=== PATIENT | female | born 1965 | race Caucasian/White ===

== ENCOUNTER 2017-08-15 15:54 | Emergency (ER) | payer MEDICAID ==
[2017-08-15 16:07] VITALS: BP 135/111
--- NOTE | 2017-08-15 16:15 | ED Physician Documentation ---
PD HPI LOWER EXT INJURY - Stated complaint Stated Complaint: RASH/LT FOOT INJ - Chief complaint Chief Complaint: Ext Problem - History obtained from History obtained from: Patient - History of Present Illness PD HPI LOW EXT INJURY LOCATION: Left, Ankle, Foot Type of injury: Twist Timing - onset: Today Worsened by: Moving, Palpating Associated symptoms: Swelling. 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 - Present Medications Home Medications: Ambulatory Orders Medication Instructions Recorded Confirmed Cephalexin [Keflex] 1 cap PO BID 08/15/17 08/15/17 Cetirizine [ZyrTEC] 10 mg PO DAILY #20 tablet 08/15/17 Dexamethasone [Decadron] 4 mg PO DAILY #5 tablet 08/15/17 Naproxen 375 mg PO BID #20 tablet 08/15/17 Sulfamethox/Trimeth 800/160 1 each PO BID #10 tablet 08/15/17 [Bactrim Ds 800/160] - Allergies Allergies/Adverse Reactions: Allergies Allergy/AdvReac Type Severity Reaction Status Date / Time No Known Drug Allergies Allergy Verified 08/15/17 16:03 - Social History Does the pt smoke?: Yes Smoking Status: Current every day smoker Does the pt drink ETOH?: Yes ETOH Use: Wine, Beer, Liquor Does the pt have substance abuse?: No - Immunizations Immunizations are current?: Yes - POLST Patient has POLST: No PD ED PE NORMAL - Vitals Vital signs reviewed: Yes - General General: Alert and oriented X 3, Well developed/nourished - HEENT HEENT: Pharynx benign - Neck Neck: Supple, no meningeal sign, No adenopathy - Cardiac Cardiac: RRR, No murmur - Respiratory Respiratory: Clear bilaterally - Derm Derm: Normal color, Warm and dry, Other (hives speckles on body c/w allergic reaction.) - Extremities Extremities: Other (left anterolateral foot/ankle with local tenderness and swelling. No gross laxity ons tress testing. Achilles is normal. ) Results - Vitals Vitals: Oxygen O2 Source Room air - Rads (name of study) ankle Radiology: Prelim report reviewed, EMP read contemporaneously (normal) PD MEDICAL DECISION MAKING - ED course Complexity details: considered differential (independent problems of foot sprain and hives rash c/w allergic reaction.), d/w patient Departure - Departure Disposition: 01 Home, Self Care Clinical Impression: Foot sprain Qualifiers: Encounter type: initial encounter Laterality: left Qualified Code(s): S93.602A - Unspecified sprain of left foot, initial encounter Allergic reaction caused by a drug Qualifiers: Encounter type: initial encounter Qualified Code(s): T78.40XA - Allergy, unspecified, initial encounter Condition: Stable Record reviewed to determine appropriate education?: Yes Instructions: ED Drug React Allergic, ED Boot Aircast Walker Follow-Up: Claritza Goss MD [Primary Care Provider] - Prescriptions: Cetirizine [ZyrTEC] 10 mg PO DAILY #20 tablet Dexamethasone [Decadron] 4 mg PO DAILY #5 tablet Naproxen 375 mg PO BID #20 tablet Sulfamethox/Trimeth 800/160 [Bactrim Ds 800/160] 1 each PO BID #10 tablet Comments: Your foot and ankle x-ray does not show any fractures. It presumably is some sprain of the ligaments. Use the walking cast boot which will provide multidimensional support for the ankle. Use it when up and around for the next 2-3 weeks until fully healed. Use some naproxen or ibuprofen twice daily for the next 7-10 days. Activity as able based on comfort. For your allergic reaction, stop the cephalexin and changed to Bactrim instead for the bladder infection. Use dexamethasone steroid for the allergic reaction daily for the next 5 days. Add cetirizine daily for the next week. This is an antihistamine. In the short-term you can use Benadryl every 6 hours if needed for itching and hives in the short-term. Recheck if the hives are not better over the next day or 2. Recheck if your ankle is not better over the next week or so. Discharge Date/Time: 08/15/17 17:19
--- NOTE | 2017-08-15 16:43 | XRAY Report ---
EXAM: LEFT ANKLE RADIOGRAPHY EXAM DATE: 08/15/2017 04:32 PM. CLINICAL HISTORY: ANKLE PAIN. COMPARISON: None. TECHNIQUE: 3 views. FINDINGS: Bones: No fracture or focal bony lesion. Joints: No evidence of dislocation. Soft Tissues: No unexpected soft tissue findings. IMPRESSION: No evidence of fracture or dislocation. [facility] Referring Provider Line: [phone] SITE ID: [id number]
[2017-08-15] MEDS ORDERED: diphenhydrAMINE 25 MG CAPSULE PO STA (16:46)
[2017-08-15] MEDS ORDERED: DEXAMETHASONE 10 MG/ML VIAL PO STA (16:46)
[2017-08-15] MEDS ORDERED: CETIRIZINE 10 MG TABLET PO STA (16:46)
[2017-08-15] MEDS ORDERED: ACETAMINOPHEN 325 MG TABLET PO STA (16:47)
== END 2017-08-15 17:19 | disposition home or self-care (01) ==
LOC: ED 15:54
DX: S93.602A Unspecified sprain of left foot, initial encounter (principal); T78.40XA Allergy, unspecified, initial encounter; X58.XXXA Exposure to other specified factors, initial encounter; F17.200 Nicotine dependence, unspecified, uncomplicated
CPT/HCPCS: 73610; 99283; A9270

== ENCOUNTER 2017-08-27 10:56 | Emergency (ER) | payer MEDICAID ==
[2017-08-27] MEDS ORDERED: SODIUM CHLORIDE 0.9% 2,000 ML IV ONE (11:31)
[2017-08-27 11:59] LABS: BILIRUBIN,URINE NEGATIVE (NEGATIVE); GLUCOSE, URINE (UA) NEGATIVE (NEGATIVE); KETONES,URINE (UA) NEGATIVE (NEGATIVE); LEUKOCYTE ESTERASE, URINE NEGATIVE (NEGATIVE); NITRITE,URINE POSITIVE (NEGATIVE); OCCULT BLOOD,URINE TRACE-INTA (NEGATIVE); PH,URINE 6.5 PH (5.0-7.5); PROTEIN,URINE NEGATIVE (NEGATIVE); UROBILINOGEN,URINE 0.2 (NORMAL) E.U./dL (NORMAL)
[2017-08-27 12:00] LABS: CLARITY,URINE HAZY (CLEAR)
[2017-08-27 12:14] LABS: BACTERIA,URINE Many /HPF (None Seen); RBC,URINE 0-5 /HPF (0-5); SQUAMOUS EPITHELIAL CELL,UR RARE Squamous (<= Few)
[2017-08-27 12:21] LABS: BASOPHILS # (AUTO) 0.2 10^3/uL (0.0-0.1); EOSINOPHILS # (AUTO) 0.2 10^3/uL (0.0-0.7); EOSINOPHILS % (AUTO) 1.4 %; HGB - HEMOGLOBIN 14.4 g/dL (12.0-16.0); LYMPHOCYTES # (AUTO) 3.5 10^3/uL (1.5-3.5); LYMPHOCYTES % (AUTO) 22.2 %; MEAN CORPUSCULAR HEMOGLOBIN 33.4 pg (27.0-31.0); MEAN CORPUSCULAR HGB CONC 34.4 g/dL (32.0-36.0); MEAN CORPUSCULAR VOLUME 97.1 fL (81.0-99.0); MEAN PLATELET VOLUME 8.2 fL (7.9-10.8); MONOCYTES # (AUTO) 0.7 10^3/uL (0.0-1.0); MONOCYTES % (AUTO) 4.6 %; NEUTROPHILS # (AUTO) 11.2 10^3/uL (1.5-6.6); NEUTROPHILS % (AUTO) 70.8 %; PLT - PLATELET COUNT 270 10^3/uL (130-450); RED BLOOD COUNT 4.32 10^6/uL (4.20-5.40); RED CELL DISTRIBUTION WIDTH 13.7 % (12.0-15.0); WHITE BLOOD COUNT 15.8 x10^3/uL (4.8-10.8)
[2017-08-27 12:35] LABS: ALBUMIN 3.6 g/dL (3.2-5.5); ALBUMIN/GLOBULIN RATIO 1.2 (1.0-2.2); BILIRUBIN,TOTAL 0.5 mg/dL (0.2-1.0); CREATININE 0.8 mg/dL (0.4-1.0); TOTAL PROTEIN 6.7 g/dL (6.7-8.2)
[2017-08-27] MEDS ORDERED: KETOROLAC 60 MG/2 ML VIAL IVP STA (13:03)
[2017-08-27] MEDS ORDERED: ONDANSETRON 4 MG/2 ML VIAL IVP STA (13:03)
--- NOTE | 2017-08-27 14:53 | ED Physician Documentation ---
History of Present Illness - Stated complaint Stated Complaint: ABD/SIDE PX - Chief complaint Chief Complaint: Abd Pain - Additonal information Additional information: hx from pt s/p appy raymundo hyst hx pancreatitis cause unknown - occurred s/p raymundo, pt states not related to EtOH states she has been ill with NVD since mid to late July saw her PMD at [facility] and was dx with UTI and txed with antibiotics - pt states they trief keflex then cipro then septra but she had to dc all of them 2/2 side effect of NVD she had NVD before the antibiotics as weel but states this was worse rash with septra as well then today developed severe periumbilical pain 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 no 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 cough Review of Systems Constitutional: denies: Fever, Chills Cardiac: denies: Chest pain / pressure Respiratory: denies: Dyspnea, Cough GI: reports: Abdominal Pain, Nausea, Vomiting, Diarrhea : reports: Dysuria, Hysterectomy Endocrine: denies: Easy bruising / bleeding Immunocompromised: denies: Immunocompromised PD PAST MEDICAL HISTORY - Past Surgical History Past Surgical History: Yes General: Cholecystectomy, Appendectomy 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 - Present Medications Home Medications: Ambulatory Orders Medication Instructions Recorded Confirmed Nitrofurantoin [Macrobid] 100 mg PO BID #14 capsule 08/27/17 Ondansetron Odt [Zofran] 4 mg TL Q6H PRN #10 tablet 08/27/17 - Allergies Allergies/Adverse Reactions: Allergies Allergy/AdvReac Type Severity Reaction Status Date / Time No Known Drug Allergies Allergy Verified 08/27/17 11:05 - Social History Does the pt smoke?: Yes Smoking Status: Current every day smoker Does the pt drink ETOH?: Yes Does the pt have substance abuse?: No - Immunizations Immunizations are current?: Yes - POLST Patient has POLST: No PD ED PE NORMAL - Vitals Vital signs reviewed: Yes - Cardiac Cardiac: RRR - Respiratory Respiratory: No respiratory distress, Clear bilaterally - Abdomen Abdomen: Soft, Other (mid TTP mid upper abd s rebound or guarding, no pulsatile mass) - Back Back: No CVA TTP - Derm Derm: Normal color - Extremities Extremities: No deformity - Neuro Neuro: Alert and oriented X 3 Results - Vitals Vitals: Vital Signs - 24 hr 08/27/17 08/27/17 11:00 13:55 Temperature 36.3 C L Heart Rate 119 H 93 Respiratory 20 18 Rate Blood Pressure 125/86 H 106/68 O2 Saturation 97 97 Oxygen O2 Source Room air - Labs Labs: Laboratory Tests 08/27/17 08/27/17 08/27/17 11:10 12:15 12:15 WBC 15.8 H RBC 4.32 Hgb 14.4 Hct 42.0 MCV 97.1 MCH 33.4 H MCHC 34.4 RDW 13.7 Plt Count 270 MPV 8.2 Neut # 11.2 H Lymph # 3.5 [place] # 0.7 Eos # 0.2 Baso # 0.2 H Absolute Nucleated RBC 0.00 Nucleated RBC % 0.0 Sodium 138 Potassium 3.7 Chloride 103 Carbon Dioxide 24 Anion Gap 11.0 BUN 14 Creatinine 0.8 Estimated GFR (MDRD) 76 L Glucose 103 H Lactic Acid Calcium 9.0 Total Bilirubin 0.5 AST 25 ALT 46 Alkaline Phosphatase 152 H Total Protein 6.7 Albumin 3.6 Globulin 3.1 Albumin/Globulin Ratio 1.2 Lipase 20 L Urine Color YELLOW Urine Clarity HAZY Urine pH 6.5 Ur Specific [place] 1.025 Urine Protein NEGATIVE Urine Glucose (UA) NEGATIVE Urine Ketones NEGATIVE Urine Occult Blood TRACE-INTA Urine Nitrite POSITIVE H Urine Bilirubin NEGATIVE Urine Urobilinogen 0.2 (NORMAL) Ur Leukocyte Esterase NEGATIVE Urine RBC 0-5 Urine WBC >25 H Ur Squamous Epith Cells RARE Squamous Urine Bacteria Many H Ur Microscopic Review INDICATED Urine Culture Comments INDICATED 08/27/17 12:15 WBC RBC Hgb Hct MCV MCH MCHC RDW Plt Count MPV Neut # Lymph # [place] # Eos # Baso # Absolute Nucleated RBC Nucleated RBC % Sodium Potassium Chloride Carbon Dioxide Anion Gap BUN Creatinine Estimated GFR (MDRD) Glucose Lactic Acid 1.2 Calcium Total Bilirubin AST ALT Alkaline Phosphatase Total Protein Albumin Globulin Albumin/Globulin Ratio Lipase Urine Color Urine Clarity Urine pH Ur Specific [place] Urine Protein Urine Glucose (UA) Urine Ketones Urine Occult Blood Urine Nitrite Urine Bilirubin Urine Urobilinogen Ur Leukocyte Esterase Urine RBC Urine WBC Ur Squamous Epith Cells Urine Bacteria Ur Microscopic Review Urine Culture Comments PD MEDICAL DECISION MAKING - ED course ED course: obtained records from [facility] elev LFTs hepatits panel pending, meth abuse last use Jul 2017, mental health, asthma, arthritis it seems her visit on 08/13 was for insomnia related to meth withdrawal alk phos AST ALT all mod elevated, + UTI urine culture grew E Coli sens augmentin ceftriazone cefepine, cipro, ertapenem , imipenem, levaquin, macrobd, zosyn and resisatnt to bactrim today she has continued NVD and UTI sx and is tachy with elev WBC but neg lactate LFTs improved from last visit (she denies any tylenol EtOH) has upper abd TTP but not peritoneal, already s/p raymundo, no pulsatile mass, neg lipase makes pancreatitis unlikely - could be from a month of NV and be muscular - in any case she feels much much better after IVF and toradol and zofran - rpt ab exam no TTP at all - she is eating crackers do not feel emergent imaging needed at this time - will tx with UTI and NVD - given systemic sx will rx X 7 days she adds she is one month sober from meth so that may explain some of her GI issues pt requested I call her PMD at to expeditie her admit to [facility] Departure - Departure Clinical Impression: UTI (urinary tract infection) Qualifiers: Urinary tract infection type: acute cystitis Hematuria presence: without hematuria Qualified Code(s): N30.00 - Acute cystitis without hematuria Condition: Good Instructions: ED UTI Cystitis Female Follow-Up: Claritza Goss MD [Primary Care Provider] - Prescriptions: Nitrofurantoin [Macrobid] 100 mg PO BID #14 capsule Ondansetron Odt [Zofran] 4 mg TL Q6H PRN #10 tablet PRN Reason: Nausea / Vomiting Comments: Rest and drink plenty of fluids You need to take the antibiotics - take the zofran if you need to keep the vomiting under control so you can take the antibiotic Follow up with your PMD for a recheck urine after finishing the antibiotics
[2017-08-27] MEDS ORDERED: NITROFURANTOIN MACRO 100 MG CAPSULE PO STA (15:02)
[2017-08-27 15:22] VITALS: BP 107/70
== END 2017-08-27 15:28 | disposition home or self-care (01) ==
LOC: ED 10:56
DX: N30.00 Acute cystitis without hematuria (principal); F17.200 Nicotine dependence, unspecified, uncomplicated
CPT/HCPCS: 36415; 80053; 81001; 83605; 83690; 85025; 87040; 87086; 96361; 96374; 99283; A9270; 80306; 81003

== ENCOUNTER 2017-09-05 12:52 | Emergency (ER) | payer MEDICAID ==
[2017-09-05 13:06] VITALS: BP 115/85
[2017-09-05 13:16] LABS: BILIRUBIN,URINE NEGATIVE (NEGATIVE); GLUCOSE, URINE (UA) NEGATIVE (NEGATIVE); KETONES,URINE (UA) NEGATIVE (NEGATIVE); LEUKOCYTE ESTERASE, URINE NEGATIVE (NEGATIVE); NITRITE,URINE NEGATIVE (NEGATIVE); OCCULT BLOOD,URINE TRACE-LYSE (NEGATIVE); PH,URINE 7.5 PH (5.0-7.5); PROTEIN,URINE NEGATIVE (NEGATIVE); UROBILINOGEN,URINE 0.2 (NORMAL) E.U./dL (NORMAL)
[2017-09-05 13:20] LABS: CLARITY,URINE CLEAR (CLEAR)
--- NOTE | 2017-09-05 13:25 | ED Physician Documentation ---
PD HPI FEMALE - Stated complaint Stated Complaint: FEMALE - Chief complaint Chief Complaint: General - History obtained from History obtained from: Patient - History of Present Illness Timing - onset: Other (she had a UTI and was on abx. She is going into an alcohol treatment program and needed to have it checked that the infection is cleared. She says she does not need any other tests. 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 - Present Medications Home Medications: Ambulatory Orders Medication Instructions Recorded Confirmed Nitrofurantoin [Macrobid] 100 mg PO BID #14 capsule 08/27/17 Ondansetron Odt [Zofran] 4 mg TL Q6H PRN #10 tablet 08/27/17 - Allergies Allergies/Adverse Reactions: Allergies Allergy/AdvReac Type Severity Reaction Status Date / Time No Known Drug Allergies Allergy Verified 08/27/17 11:05 - Social History Does the pt smoke?: Yes Smoking Status: Current every day smoker Does the pt drink ETOH?: No Does the pt have substance abuse?: No - Immunizations Immunizations are current?: Yes - POLST Patient has POLST: No PD ED PE NORMAL - Vitals Vital signs reviewed: Yes - General General: Alert and oriented X 3, No acute distress, Well developed/nourished - Neck Neck: Supple, no meningeal sign, No adenopathy - Female Female : Deferred - Back Back: No CVA TTP - Derm Derm: Normal color, Warm and dry Results - Vitals Vitals: Oxygen O2 Source Room air - Labs Labs: Laboratory Tests 09/05/17 13:11 Urine Color YELLOW Urine Clarity CLEAR Urine pH 7.5 Ur Specific [place] 1.015 Urine Protein NEGATIVE Urine Glucose (UA) NEGATIVE Urine Ketones NEGATIVE Urine Occult Blood TRACE-LYSE Urine Nitrite NEGATIVE Urine Bilirubin NEGATIVE Urine Urobilinogen 0.2 (NORMAL) Ur Leukocyte Esterase NEGATIVE Ur Microscopic Review NOT INDICATED Urine Culture Comments NOT INDICATED PD MEDICAL DECISION MAKING - ED course Complexity details: reviewed results, d/w patient Departure - Departure Disposition: 01 Home, Self Care Clinical Impression: Encounter for urine test Clinical Impression: (Ruled Out): UTI (urinary tract infection) Condition: Stable Record reviewed to determine appropriate education?: Yes Comments: Your urine looks clear without any signs of infection. Forms: Activity restrictions Discharge Date/Time: 09/05/17 13:57
== END 2017-09-05 13:57 | disposition home or self-care (01) ==
LOC: ED 12:52
DX: Z00.00 Encounter for general adult medical examination without abnormal findings (principal); F17.200 Nicotine dependence, unspecified, uncomplicated
CPT/HCPCS: 81001; 81003; 87086; 99282

== ENCOUNTER 2017-10-17 11:37 | Emergency (ER) | payer MEDICAID ==
[2017-10-17 13:10] LABS: BILIRUBIN,URINE NEGATIVE (NEGATIVE); GLUCOSE, URINE (UA) NEGATIVE (NEGATIVE); KETONES,URINE (UA) NEGATIVE (NEGATIVE); LEUKOCYTE ESTERASE, URINE NEGATIVE (NEGATIVE); NITRITE,URINE NEGATIVE (NEGATIVE); OCCULT BLOOD,URINE TRACE-LYSE (NEGATIVE); PH,URINE 6.5 PH (5.0-7.5); PROTEIN,URINE NEGATIVE (NEGATIVE); UROBILINOGEN,URINE 0.2 (NORMAL) E.U./dL (NORMAL)
[2017-10-17 13:11] LABS: CLARITY,URINE CLEAR (CLEAR)
[2017-10-17 13:20] LABS: BASOPHILS # (AUTO) 0.1 10^3/uL (0.0-0.1); BASOPHILS % (AUTO) 1.3 %; EOSINOPHILS # (AUTO) 0.2 10^3/uL (0.0-0.7); EOSINOPHILS % (AUTO) 2.6 %; HGB - HEMOGLOBIN 14.7 g/dL (12.0-16.0); LYMPHOCYTES # (AUTO) 2.7 10^3/uL (1.5-3.5); LYMPHOCYTES % (AUTO) 30.5 %; MEAN CORPUSCULAR HEMOGLOBIN 33.4 pg (27.0-31.0); MEAN CORPUSCULAR HGB CONC 35.2 g/dL (32.0-36.0); MEAN CORPUSCULAR VOLUME 94.9 fL (81.0-99.0); MEAN PLATELET VOLUME 7.7 fL (7.9-10.8); MONOCYTES # (AUTO) 0.5 10^3/uL (0.0-1.0); MONOCYTES % (AUTO) 5.9 %; NEUTROPHILS # (AUTO) 5.3 10^3/uL (1.5-6.6); NEUTROPHILS % (AUTO) 59.7 %; PLT - PLATELET COUNT 294 10^3/uL (130-450); RED CELL DISTRIBUTION WIDTH 12.7 % (12.0-15.0); WHITE BLOOD COUNT 8.9 x10^3/uL (4.8-10.8)
--- NOTE | 2017-10-17 13:24 | ED Physician Documentation ---
PD HPI ABD PAIN - Stated complaint Stated Complaint: abd/back pain - Chief complaint Chief Complaint: Abd Pain - History obtained from History obtained from: Patient - History of Present Illness Timing - onset: How many days ago (few) Timing - duration: Days (few) Timing - details: Gradual onset, Still present Quality: Cramping, Aching, Pain Location: Periumbilical, Suprapubic Associated symptoms: Nausea, Constipation. No: Fever Similar symptoms before: Has not had sx before Recently seen: Not recently seen Review of Systems Constitutional: reports: Fever, Chills, Myalgias Nose: denies: Rhinorrhea / runny nose, Congestion Throat: denies: Sore throat Cardiac: denies: Chest pain / pressure Respiratory: denies: Dyspnea, Cough GI: reports: Abdominal Pain, Nausea. 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 - Present Medications Home Medications: Ambulatory Orders Medication Instructions Recorded Confirmed Ondansetron Odt [Zofran] 4 mg TL Q6H PRN #10 tablet 08/27/17 Dexamethasone [Decadron] 4 mg PO DAILY #5 tablet 10/17/17 Dicyclomine HCl 10/17/17 HYDROcod/ACETAM 5/325 [[place] 5/325] 1 tab PO Q6H PRN #15 tablet 10/17/17 Hydrocodone/Acetaminophen [Vicodin 10/17/17 5-300 mg Tablet] Mesalamine [Apriso] 10/17/17 Metronidazole [Flagyl] 500 mg PO BID #14 tablet 10/17/17 Ondansetron HCl [Zofran] 4 mg PO Q6H PRN #20 tablet 10/17/17 Ranitidine HCl [Acid Control] 10/17/17 Trazodone HCl 10/17/17 cloNIDine 0.1 MG PATCH 10/17/17 [Qgipwkry-Apg-4] hydrOXYzine HCl [Hydroxyzine HCl] 25 mg PO 10/17/17 - Allergies Allergies/Adverse Reactions: Allergies Allergy/AdvReac Type Severity Reaction Status Date / Time No Known Drug Allergies Allergy Verified 08/27/17 11:05 - Social History Does the pt smoke?: Yes Smoking Status: Current every day smoker Does the pt drink ETOH?: No Does the pt have substance abuse?: No - Immunizations Immunizations are current?: Yes - POLST Patient has POLST: No PD ED PE NORMAL - Vitals Vital signs reviewed: Yes - General General: Alert and oriented X 3, No acute distress, Well developed/nourished - HEENT HEENT: PERRL (nonicteric), Pharynx benign - Neck Neck: Supple, no meningeal sign, No adenopathy - Cardiac Cardiac: RRR, No murmur - Respiratory Respiratory: Clear bilaterally - Abdomen Abdomen: Normal bowel sounds, Soft, Non distended, No organomegaly, Other ( tender suprapubic area and then also LLQ area without guarding nor percussion tenderness. ) - Back Back: No CVA TTP - Derm Derm: Warm and dry - Extremities Extremities: No deformity, No tenderness to palpate, Normal ROM s pain - Neuro Neuro: Alert and oriented X 3, No motor deficit, Normal speech - Psych Psych: Normal mood, Normal affect Results - Vitals Vitals: Oxygen O2 Source Room air - Labs Labs: Laboratory Tests 10/17/17 10/17/17 10/17/17 12:55 13:16 13:16 WBC 8.9 RBC 4.40 Hgb 14.7 Hct 41.7 MCV 94.9 MCH 33.4 H MCHC 35.2 RDW 12.7 Plt Count 294 MPV 7.7 L Neut # 5.3 Lymph # 2.7 [place] # 0.5 Eos # 0.2 Baso # 0.1 Absolute Nucleated RBC 0.01 Nucleated RBC % 0.1 ESR Sodium 136 Potassium 3.8 Chloride 104 Carbon Dioxide 23 Anion Gap 9.0 BUN 15 Creatinine 0.7 Estimated GFR (MDRD) 88 L Glucose 109 H Calcium 9.4 Magnesium Total Bilirubin 0.6 AST 34 ALT 34 Alkaline Phosphatase 147 H Total Protein 7.9 Albumin 4.6 Globulin 3.3 Albumin/Globulin Ratio 1.4 Lipase 18 L Urine Color YELLOW Urine Clarity CLEAR Urine pH 6.5 Ur Specific [place] 1.015 Urine Protein NEGATIVE Urine Glucose (UA) NEGATIVE Urine Ketones NEGATIVE Urine Occult Blood TRACE-LYSE Urine Nitrite NEGATIVE Urine Bilirubin NEGATIVE Urine Urobilinogen 0.2 (NORMAL) Ur Leukocyte Esterase NEGATIVE Ur Microscopic Review NOT INDICATED Urine Culture Comments NOT INDICATED 10/17/17 10/17/17 13:16 13:16 WBC RBC Hgb Hct MCV MCH MCHC RDW Plt Count MPV Neut # Lymph # [place] # Eos # Baso # Absolute Nucleated RBC Nucleated RBC % ESR 28 Sodium Potassium Chloride Carbon Dioxide Anion Gap BUN Creatinine Estimated GFR (MDRD) Glucose Calcium Magnesium 2.1 Total Bilirubin AST ALT Alkaline Phosphatase Total Protein Albumin Globulin Albumin/Globulin Ratio Lipase Urine Color Urine Clarity Urine pH Ur Specific [place] Urine Protein Urine Glucose (UA) Urine Ketones Urine Occult Blood Urine Nitrite Urine Bilirubin Urine Urobilinogen Ur Leukocyte Esterase Ur Microscopic Review Urine Culture Comments PD MEDICAL DECISION MAKING - ED course Complexity details: re-evaluated patient, considered differential, d/w patient Departure - Departure Disposition: Home, Self Care Clinical Impression: Abdominal pain Qualifiers: Abdominal location: left lower quadrant Qualified Code(s): R10.32 - Left lower quadrant pain Ulcerative colitis Qualifiers: Ulcerative colitis location: unspecified ulcerative colitis location Digestive disease complication type: without complication Qualified Code(s): K51.90 - Ulcerative colitis, unspecified, without complications Condition: Stable Record reviewed to determine appropriate education?: Yes Instructions: ED Abdominal Pain Unkn Cause, ED Colitis Ulcerative Follow-Up: Claritza Goss MD [Primary Care Provider] - Prescriptions: Dexamethasone [Decadron] 4 mg PO DAILY #5 tablet HYDROcod/ACETAM 5/325 [[place] 5/325] 1 tab PO Q6H PRN #15 tablet PRN Reason: Pain Metronidazole [Flagyl] 500 mg PO BID #14 tablet Ondansetron HCl [Zofran] 4 mg PO Q6H PRN #20 tablet PRN Reason: Nausea / Vomiting Comments: Drink lots of fluids. Continue usual medications. Add Decadron steroid daily for 5 more days. Flagyl twice daily for a week in case of infection developing. Add hydrocodone if needed for pain. Drink lots of fluids sorry I said that already. Follow-up with your primary care if not improving over the next few days. Follow-up with GI in [place] as planned. Discharge Date/Time: 10/17/17 15:25
[2017-10-17 13:32] LABS: ALBUMIN 4.6 g/dL (3.2-5.5); ALBUMIN/GLOBULIN RATIO 1.4 (1.0-2.2); BILIRUBIN,TOTAL 0.6 mg/dL (0.2-1.0); CALCIUM 9.4 mg/dL (8.5-10.3); CREATININE 0.7 mg/dL (0.4-1.0); TOTAL PROTEIN 7.9 g/dL (6.7-8.2)
[2017-10-17] MEDS ORDERED: HYDROmorphone 1 MG/ML CARPUJECT IVP STA (13:38)
[2017-10-17] MEDS ORDERED: SODIUM CHLORIDE 0.9% 1,000 ML IV ONE (13:38)
[2017-10-17] MEDS ORDERED: ONDANSETRON 4 MG/2 ML VIAL IVP STA (13:38)
[2017-10-17] MEDS ORDERED: DEXAMETHASONE 10 MG/ML VIAL IVP STA (13:38)
[2017-10-17] MEDS ORDERED: metroNIDAZOLE 250 MG TABLET PO STA (15:06)
[2017-10-17 15:17] VITALS: BP 127/84
== END 2017-10-17 15:25 | disposition home or self-care (01) ==
LOC: ED 11:37
DX: K51.90 Ulcerative colitis, unspecified, without complications (principal); F17.200 Nicotine dependence, unspecified, uncomplicated
CPT/HCPCS: 36415; 80053; 81003; 83690; 83735; 85025; 85651; 96361; 96374; 99283; 99284; A9270; J1170; 81001; 87086

== ENCOUNTER 2018-02-16 20:19 | Emergency (ER) | payer MEDICAID ==
[2018-02-16] MEDS ORDERED: IBUPROFEN 600 MG TABLET PO STA (20:30)
--- NOTE | 2018-02-16 20:37 | ED Physician Documentation ---
PD HPI LOWER EXT INJURY - Stated complaint Stated Complaint: LT KNEE INJ - Chief complaint Chief Complaint: Trauma Ext - History obtained from History obtained from: Patient - History of Present Illness PD HPI LOW EXT INJURY LOCATION: Left (She had her left knee planted and was twisting the right and she felt a pull behind the left knee with moderate pain there no fall.) Review of Systems Constitutional: reports: Reviewed and negative Cardiac: reports: Reviewed and negative Respiratory: reports: Reviewed and negative PD PAST MEDICAL HISTORY - Past Medical History Past Medical History: Yes Cardiovascular: None Respiratory: None GI: Ulcerative colitis - Past Surgical History Past Surgical History: Yes General: Cholecystectomy, Appendectomy 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 - Present Medications Home Medications: Ambulatory Orders Medication Instructions Recorded Confirmed Ondansetron Odt [Zofran] 4 mg TL Q6H PRN #10 tablet 08/27/17 Dexamethasone [Decadron] 4 mg PO DAILY #5 tablet 10/17/17 Dicyclomine HCl 10/17/17 HYDROcod/ACETAM 5/325 [[place] 5/325] 1 tab PO Q6H PRN #15 tablet 10/17/17 Hydrocodone/Acetaminophen [Vicodin 10/17/17 5-300 mg Tablet] Mesalamine [Apriso] 10/17/17 Metronidazole [Flagyl] 500 mg PO BID #14 tablet 10/17/17 Ondansetron HCl [Zofran] 4 mg PO Q6H PRN #20 tablet 10/17/17 Ranitidine HCl [Acid Control] 10/17/17 Trazodone HCl 10/17/17 cloNIDine 0.1 MG PATCH 10/17/17 [Pngmybet-Nwp-1] hydrOXYzine HCl [Hydroxyzine HCl] 25 mg PO 10/17/17 - Allergies Allergies/Adverse Reactions: Allergies Allergy/AdvReac Type Severity Reaction Status Date / Time No Known Drug Allergies Allergy Verified 02/16/18 20:26 - Social History Does the pt smoke?: Yes Smoking Status: Current every day smoker Does the pt drink ETOH?: No Does the pt have substance abuse?: No - Immunizations Immunizations are current?: Yes - POLST Patient has POLST: No PD ED PE NORMAL - Vitals Vital signs reviewed: Yes - General General: Alert and oriented X 3, No acute distress - Extremities Extremities: Other (The knee is not tender and there is no effusion. She does have some pain with grind testing and testing of the lateral collateral ligament , but all the ligaments are tight.) - Neuro Neuro: Alert and oriented X 3, Normal speech Results - Vitals Vitals: Vital Signs - 24 hr 02/16/18 02/16/18 20:24 21:28 Temperature 36.7 C 36.5 C Heart Rate 107 H 97 Respiratory 20 18 Rate Blood Pressure 155/103 H 123/83 H O2 Saturation 99 97 Oxygen O2 Source Room air - Rads (name of study) L knee 4v Radiology: EMP read contemporaneously (NAD) PD MEDICAL DECISION MAKING - Sepsis Event Vital Signs: Vital Signs - 24 hr 02/16/18 02/16/18 20:24 21:28 Temperature 36.7 C 36.5 C Heart Rate 107 H 97 Respiratory 20 18 Rate Blood Pressure 155/103 H 123/83 H O2 Saturation 99 97 Oxygen O2 Source Room air Departure - Departure Disposition: 01 Home, Self Care Clinical Impression: Strain of left knee Qualifiers: Encounter type: initial encounter Qualified Code(s): S86.912A - Strain of unspecified muscle(s) and tendon(s) at lower leg level, left leg, initial encounter Condition: Good Record reviewed to determine appropriate education?: Yes Instructions: ED Sprain Ankle W X Ray Comments: Follow-up with your physician in a week or 2 if not better, return for new or worsening symptoms. Discharge Date/Time: 02/16/18 21:59
[2018-02-16 21:31] VITALS: BP 123/83
[2018-02-16] MEDS ORDERED: HYDROcod/ACET 5/325 Prepack 4 PO STA (21:50)
[2018-02-16] MEDS ORDERED: LIDOCAINE PATCH 5% TOP SCH (22:00)
--- NOTE | 2018-02-17 08:55 | XRAY Report ---
Procedure Date: 02/16/2018 Accession Number: [id number] / [id number] Procedure: XR - Knee 4 View LT CPT Code: FULL RESULT: EXAM: LEFT KNEE RADIOGRAPHY EXAM DATE: 02/16/2018 08:49 PM. CLINICAL HISTORY: Knee pain COMPARISON: None. TECHNIQUE: 4 views. FINDINGS: Bones: No fracture or focal bony lesion. Joints: No evidence of dislocation. Soft Tissues: No unexpected soft tissue findings. IMPRESSION: No evidence of fracture or dislocation. [facility]
== END 2018-02-16 21:59 | disposition home or self-care (01) ==
LOC: ED 20:19
DX: S86.912A Strain of unspecified muscle(s) and tendon(s) at lower leg level, left leg, initial encounter (principal); X50.1XXA Overexertion from prolonged static or awkward postures, initial encounter; Y93.01 Activity, walking, marching and hiking; Y92.480 Sidewalk as the place of occurrence of the external cause; F17.200 Nicotine dependence, unspecified, uncomplicated
CPT/HCPCS: 73564; 99283; A9270

== ENCOUNTER 2018-02-20 04:39 | Emergency (ER) | payer MEDICAID ==
--- NOTE | 2018-02-20 05:27 | ED Physician Documentation ---
PD HPI ABD PAIN - Stated complaint Stated Complaint: ABD PAIN - Chief complaint Chief Complaint: Abd Pain - History obtained from History obtained from: Patient - History of Present Illness Timing - onset: How many hours ago (a few hours) Timing - duration: Hours Timing - details: Abrupt onset Pain level now: 8 Quality: Pain Location: All over / everywhere (predominantly across lower abdomen, greatest in LLQ and periumbilicus) Radiation: Other (no radiation) Improved by: Laying still Worsened by: Moving, Palpation Associated symptoms: Nausea, Vomiting, Diarrhea. No: Fever, Constipation, Dysuria Similar symptoms before: Diagnosis (feels similar to previous UC flares) Recently seen: Emergency Dept (6th [facility] ED visit this year) Review of Systems Constitutional: reports: Reviewed and negative Cardiac: reports: Reviewed and negative Respiratory: reports: Reviewed and negative GI: reports: Abdominal Pain, Nausea, Vomiting, Diarrhea : denies: Dysuria, Frequency PD PAST MEDICAL HISTORY - Past Medical History Past Medical History: Yes Cardiovascular: None Respiratory: None GI: Ulcerative colitis - Past Surgical History Past Surgical History: Yes General: Cholecystectomy, Appendectomy 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 - Present Medications Home Medications: Ambulatory Orders Medication Instructions Recorded Confirmed Ondansetron Odt [Zofran] 4 mg TL Q6H PRN #10 tablet 08/27/17 Dexamethasone [Decadron] 4 mg PO DAILY #5 tablet 10/17/17 Dicyclomine HCl 10/17/17 HYDROcod/ACETAM 5/325 [[place] 5/325] 1 tab PO Q6H PRN #15 tablet 10/17/17 Hydrocodone/Acetaminophen [Vicodin 10/17/17 5-300 mg Tablet] Mesalamine [Apriso] 10/17/17 Metronidazole [Flagyl] 500 mg PO BID #14 tablet 10/17/17 Ondansetron HCl [Zofran] 4 mg PO Q6H PRN #20 tablet 10/17/17 Ranitidine HCl [Acid Control] 10/17/17 Trazodone HCl 10/17/17 cloNIDine 0.1 MG PATCH 10/17/17 [Qohqtilk-Aor-6] hydrOXYzine HCl [Hydroxyzine HCl] 25 mg PO 10/17/17 Dexamethasone [Decadron] 4 mg PO DAILY #4 tablet 02/20/18 Hydrocodone/Acetaminophen 1 - 2 each PO Q6HR PRN #14 tablet 02/20/18 [Hydrocodon-Acetaminophen 5-325] Mesalamine [Apriso] 1.5 gm PO DAILY 30 Days #120 02/20/18 cap.er.24h Metronidazole [Flagyl] 500 mg PO BID #14 tablet 02/20/18 Ondansetron Odt [Zofran] 4 mg TL Q6H PRN #14 tablet 02/20/18 - Allergies Allergies/Adverse Reactions: Allergies Allergy/AdvReac Type Severity Reaction Status Date / Time No Known Drug Allergies Allergy Verified 02/20/18 04:44 - Social History Does the pt smoke?: Yes Smoking Status: Current every day smoker Does the pt drink ETOH?: No Does the pt have substance abuse?: No - Immunizations Immunizations are current?: Yes - POLST Patient has POLST: No PD ED PE NORMAL - Vitals Vital signs reviewed: Yes - General General: Alert and oriented X 3, No acute distress, Well developed/nourished - Abdomen Abdomen: Soft, Non distended, Other (TTP across lower abdomen and periumbilicus without rebound or guarding. tenderness is mild) - Back Back: No CVA TTP - Derm Derm: Normal color, Warm and dry, No rash - Extremities Extremities: No edema Results - Vitals Vitals: Oxygen O2 Source Room air - Labs Labs: Laboratory Tests 02/20/18 02/20/18 02/20/18 05:00 05:00 05:15 WBC 11.1 H RBC 4.21 Hgb 14.4 Hct 40.5 MCV 96.0 MCH 34.1 H MCHC 35.5 RDW 13.2 Plt Count 277 MPV 8.3 Neut # (Auto) 6.3 Lymph # (Auto) 3.7 H Gal[place] # (Auto) 0.6 Eos # (Auto) 0.4 Baso # (Auto) 0.1 Absolute Nucleated RBC 0.02 Nucleated RBC % 0.2 Sodium 138 Potassium 3.6 Chloride 106 Carbon Dioxide 24 Anion Gap 8.0 BUN 19 Creatinine 0.7 Estimated GFR (MDRD) 88 L Glucose 109 H Calcium 9.0 Total Bilirubin 0.7 AST 34 ALT 54 Alkaline Phosphatase 202 H Total Protein 6.9 Albumin 3.5 Globulin 3.4 Albumin/Globulin Ratio 1.0 Lipase 32 Urine Color YELLOW Urine Clarity CLEAR Urine pH 6.0 Ur Specific [place] 1.020 Urine Protein NEGATIVE Urine Glucose (UA) NEGATIVE Urine Ketones NEGATIVE Urine Occult Blood SMALL H Urine Nitrite NEGATIVE Urine Bilirubin NEGATIVE Urine Urobilinogen 0.2 (NORMAL) Ur Leukocyte Esterase NEGATIVE Urine RBC 0-5 Urine WBC 0-3 Ur Squamous Epith Cells FEW Squamous Urine Bacteria Rare Ur Microscopic Review INDICATED Urine Culture Comments NOT INDICATED PD MEDICAL DECISION MAKING - ED course Complexity details: reviewed old records, reviewed results, re-evaluated patient , considered differential, d/w patient ED course: treated empirically for UC flare (imaging not performed, as patient feels this is entirely c/w her previous UC flares; given h/o illicit drug use, would consider imaging if recurrent/frequent ED visits for same to confirm if narcotic analgesia required. she does not make specific pain medication requests on this visit nor does she bargain or argue over dosing or prescriptions. she does request rx for her mesalamine, as she recently ran out of this. our conversation suggests she has familiarity with ulcerative colitis and its treatment). she is calm, pleasant, and cooperative - Sepsis Event Vital Signs: Oxygen O2 Source Room air Departure - Departure Disposition: 01 Home, Self Care Clinical Impression: Ulcerative colitis Qualifiers: Ulcerative colitis location: unspecified ulcerative colitis location Digestive disease complication type: without complication Qualified Code(s): K51.90 - Ulcerative colitis, unspecified, without complications Condition: Good Instructions: ED Colitis Ulcerative Follow-Up: Claritza Goss MD [Primary Care Provider] - (Call to arrange for next available appointment) Prescriptions: Hydrocodone/Acetaminophen [Hydrocodon-Acetaminophen 5-325] 1 - 2 each PO Q6HR PRN #14 tablet PRN Reason: Pain Dexamethasone [Decadron] 4 mg PO DAILY #4 tablet Mesalamine [Apriso] 1.5 gm PO DAILY 30 Days #120 cap.er.24h Metronidazole [Flagyl] 500 mg PO BID #14 tablet Ondansetron Odt [Zofran] 4 mg TL Q6H PRN #14 tablet PRN Reason: Nausea / Vomiting Discharge Date/Time: 02/20/18 07:05
[2018-02-20] MEDS ORDERED: KETOROLAC 60 MG/2 ML VIAL IVP STA (05:37)
[2018-02-20] MEDS ORDERED: ONDANSETRON 4 MG/2 ML VIAL IVP STA ×2 (05:37→06:44)
[2018-02-20] MEDS ORDERED: HYDROmorphone 1 MG/ML CARPUJECT IVP STA ×2 (05:37→06:44)
[2018-02-20] MEDS ORDERED: SODIUM CHLORIDE 0.9% 1,000 ML IV STA (05:38)
[2018-02-20 05:53] LABS: BASOPHILS # (AUTO) 0.1 10^3/uL (0.0-0.1); BASOPHILS % (AUTO) 1.1 %; EOSINOPHILS # (AUTO) 0.4 10^3/uL (0.0-0.7); EOSINOPHILS % (AUTO) 3.6 %; HGB - HEMOGLOBIN 14.4 g/dL (12.0-16.0); LYMPHOCYTES # (AUTO) 3.7 10^3/uL (1.5-3.5); LYMPHOCYTES % (AUTO) 33.7 %; MEAN CORPUSCULAR HEMOGLOBIN 34.1 pg (27.0-31.0); MEAN CORPUSCULAR HGB CONC 35.5 g/dL (32.0-36.0); MEAN PLATELET VOLUME 8.3 fL (7.9-10.8); MONOCYTES # (AUTO) 0.6 10^3/uL (0.0-1.0); MONOCYTES % (AUTO) 5.2 %; NEUTROPHILS # (AUTO) 6.3 10^3/uL (1.5-6.6); NEUTROPHILS % (AUTO) 56.4 %; PLT - PLATELET COUNT 277 10^3/uL (130-450); RED BLOOD COUNT 4.21 10^6/uL (4.20-5.40); RED CELL DISTRIBUTION WIDTH 13.2 % (12.0-15.0); WHITE BLOOD COUNT 11.1 x10^3/uL (4.8-10.8)
[2018-02-20 05:58] LABS: ALBUMIN 3.5 g/dL (3.2-5.5); BILIRUBIN,TOTAL 0.7 mg/dL (0.2-1.0); CREATININE 0.7 mg/dL (0.4-1.0); TOTAL PROTEIN 6.9 g/dL (6.7-8.2)
[2018-02-20 06:01] LABS: BILIRUBIN,URINE NEGATIVE (NEGATIVE); GLUCOSE, URINE (UA) NEGATIVE (NEGATIVE); KETONES,URINE (UA) NEGATIVE (NEGATIVE); LEUKOCYTE ESTERASE, URINE NEGATIVE (NEGATIVE); NITRITE,URINE NEGATIVE (NEGATIVE); OCCULT BLOOD,URINE SMALL (NEGATIVE); PROTEIN,URINE NEGATIVE (NEGATIVE); UROBILINOGEN,URINE 0.2 (NORMAL) E.U./dL (NORMAL)
[2018-02-20 06:04] LABS: CLARITY,URINE CLEAR (CLEAR)
[2018-02-20 06:07] LABS: BACTERIA,URINE Rare /HPF (None Seen); RBC,URINE 0-5 /HPF (0-5); SQUAMOUS EPITHELIAL CELL,UR FEW Squamous (<= Few)
[2018-02-20] MEDS ORDERED: DEXAMETHASONE 10 MG/ML VIAL IVP STA (06:44)
[2018-02-20] MEDS ORDERED: metroNIDAZOLE 250 MG TABLET PO STA (06:44)
[2018-02-20] MEDS ORDERED: DIPHENOX/ATROPINE 2.5/0.025 MG TABLET PO STA (06:47)
[2018-02-20 07:17] VITALS: BP 122/72
== END 2018-02-20 07:05 | disposition home or self-care (01) ==
LOC: ED 04:39
DX: K51.90 Ulcerative colitis, unspecified, without complications (principal)
CPT/HCPCS: 36415; 80053; 81001; 83690; 85025; 96374; 96375; 96376; 99283; 99284; A9270; J1170; 81003; 87086

== ENCOUNTER 2018-10-16 01:57 | Emergency (ER) | payer MEDICAID ==
[2018-10-16] MEDS ORDERED: CLINDAMYCIN 150 MG CAPSULE PO STA (02:34)
--- NOTE | 2018-10-16 02:40 | ED Physician Documentation ---
History of Present Illness - Stated complaint Stated Complaint: FEMALE - Chief complaint Chief Complaint: General - History obtained from History obtained from: Patient - History of Present Illness Timing: How many weeks ago (1) Pain level max: 6 Pain level now: 5 - Additonal information Additional information: 53-year-old female presents to the emergency department stating that under her surgical incision she has noticed redness and drainage for the past week. Increasing pain tonight. Nothing makes it better or worse. The surgical incision is from a ruptured ectopic . 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 - Present Medications Home Medications: Ambulatory Orders Medication Instructions Recorded Confirmed Ondansetron Odt [Zofran] 4 mg TL Q6H PRN #10 tablet 08/27/17 Dexamethasone [Decadron] 4 mg PO DAILY #5 tablet 10/17/17 Dicyclomine HCl 10/17/17 HYDROcod/ACETAM 5/325 [[place] 5/325] 1 tab PO Q6H PRN #15 tablet 10/17/17 Hydrocodone/Acetaminophen [Vicodin 10/17/17 5-300 mg Tablet] Mesalamine [Apriso] 10/17/17 Metronidazole [Flagyl] 500 mg PO BID #14 tablet 10/17/17 Ondansetron HCl [Zofran] 4 mg PO Q6H PRN #20 tablet 10/17/17 Ranitidine HCl [Acid Control] 10/17/17 Trazodone HCl 10/17/17 cloNIDine 0.1 MG PATCH 10/17/17 [Bjcblajg-Uxs-8] hydrOXYzine HCl [Hydroxyzine HCl] 25 mg PO 10/17/17 Dexamethasone [Decadron] 4 mg PO DAILY #4 tablet 02/20/18 Hydrocodone/Acetaminophen 1 - 2 each PO Q6HR PRN #14 tablet 02/20/18 [Hydrocodon-Acetaminophen 5-325] Mesalamine [Apriso] 1.5 gm PO DAILY 30 Days #120 02/20/18 cap.er.24h Metronidazole [Flagyl] 500 mg PO BID #14 tablet 02/20/18 Ondansetron Odt [Zofran] 4 mg TL Q6H PRN #14 tablet 02/20/18 Clindamycin HCl [Clindamycin 300MG 300 mg PO Q6H #28 capsule 10/16/18 CAP] Nystatin 1 applic TP BID PRN #1 powder 10/16/18 - Allergies Allergies/Adverse Reactions: Allergies Allergy/AdvReac Type Severity Reaction Status Date / Time No Known Drug Allergies Allergy Verified 02/20/18 04:44 - Social History Does the pt smoke?: Yes Smoking Status: Current every day smoker Does the pt drink ETOH?: No Does the pt have substance abuse?: No - Immunizations Immunizations are current?: Yes - POLST Patient has POLST: No PD ED PE NORMAL - Vitals Vital signs reviewed: Yes - General General: Alert and oriented X 3, No acute distress - HEENT HEENT: Moist mucous membranes - Abdomen Abdomen: Soft, Non tender, Non distended, Other (Lower abdominal wall has what appeared to be a candidal infection with secondary infection. No abscess.. Approximately 3 x 2 cm) - Derm Derm: Warm and dry - Neuro Neuro: Alert and oriented X 3 - Psych Psych: Normal mood, Normal affect Results - Vitals Vitals: Vital Signs - 24 hr 10/16/18 10/16/18 02:08 02:48 Temperature 36.9 C Heart Rate 127 H 99 Respiratory 20 16 Rate Blood Pressure 134/87 H 127/91 H O2 Saturation 98 99 Oxygen O2 Source Room air PD MEDICAL DECISION MAKING - ED course Complexity details: considered differential, d/w patient ED course: Patient appears to have a candidal infection in the fold where her surgical scar was from her ruptured ectopic many years ago. Appears to be secondarily infected as well. Will place on antibiotics. No abscess. Patient counseled regarding signs and symptoms for which I believe and urgent re-evaluation would be necessary. Patient with good understanding of and agreement to plan and is comfortable going home at this time This document was made in part using voice recognition software. While efforts are made to proofread this document, sound alike and grammatical errors may occur. She is very well-appearing, nontoxic. Afebrile. Departure - Departure Disposition: 01 Home, Self Care Clinical Impression: Candidiasis of skin Cellulitis Qualifiers: Site of cellulitis: trunk Site of cellulitis of trunk: abdominal wall Qualified Code(s): L03.311 - Cellulitis of abdominal wall Condition: Good Instructions: ED Candidiasis Cutaneous, ED Infec Skin Cellulitis Follow-Up: Claritza Goss MD [Primary Care Provider] - Within 3 Days (for wound check) Prescriptions: Clindamycin HCl [Clindamycin 300MG CAP] 300 mg PO Q6H #28 capsule Nystatin 1 applic TP BID PRN #1 powder PRN Reason: rash Comments: Use the medication as prescribed. Return if you worsen. Follow-up with your doctor for further care. Discharge Date/Time: 10/16/18 02:59
[2018-10-16] MEDS ORDERED: ACETAMINOPHEN 325 MG TABLET PO STA (02:41)
[2018-10-16 02:49] VITALS: BP 127/91
== END 2018-10-16 02:59 | disposition home or self-care (01) ==
LOC: ED 01:57
DX: B37.2 Candidiasis of skin and nail (principal); L03.311 Cellulitis of abdominal wall; F17.200 Nicotine dependence, unspecified, uncomplicated
CPT/HCPCS: 99283; A9270

== ENCOUNTER 2019-06-29 20:39 | Emergency (ER) | payer MEDICAID ==
[2019-06-29 20:54] VITALS: BP 153/82
--- NOTE | 2019-06-29 21:49 | ED Physician Documentation ---
History of Present Illness - Stated complaint Stated Complaint: L FT PX - Chief complaint Chief Complaint: Ext Problem - Additonal information Additional information: This is a 53-year-old female who presents with some left ankle and posterior lower leg pain. Patient states that she was unloading some items from her car and she stepped on her tip-toes to keep the car joseph from coming down and when she put her weight back on her heels she felt a pop in the posterior part of her left ankle. She has been in significant pain since that time. She is able to move her foot somewhat, but walking on the foot has been extremely painful. She denies any direct trauma to the foot otherwise. 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 - Present Medications Home Medications: Ambulatory Orders Medication Instructions Recorded Confirmed Ondansetron Odt [Zofran] 4 mg TL Q6H PRN #10 tablet 08/27/17 Dicyclomine HCl 10/17/17 HYDROcod/ACETAM 5/325 [[place] 5/325] 1 tab PO Q6H PRN #15 tablet 10/17/17 Hydrocodone/Acetaminophen [Vicodin 10/17/17 5-300 mg Tablet] Mesalamine [Apriso] 10/17/17 Metronidazole [Flagyl] 500 mg PO BID #14 tablet 10/17/17 Ondansetron HCl [Zofran] 4 mg PO Q6H PRN #20 tablet 10/17/17 Ranitidine HCl [Acid Control] 10/17/17 Trazodone HCl 10/17/17 cloNIDine 0.1 MG PATCH 10/17/17 [Tilxojcy-Mem-2] dexAMETHasone [Decadron] 4 mg PO DAILY #5 tablet 10/17/17 hydrOXYzine HCl [Hydroxyzine HCl] 25 mg PO 10/17/17 Hydrocodone/Acetaminophen 1 - 2 each PO Q6HR PRN #14 tablet 02/20/18 [Hydrocodon-Acetaminophen 5-325] Mesalamine [Apriso] 1.5 gm PO DAILY 30 Days #120 02/20/18 cap.er.24h Metronidazole [Flagyl] 500 mg PO BID #14 tablet 02/20/18 Ondansetron Odt [Zofran] 4 mg TL Q6H PRN #14 tablet 02/20/18 dexAMETHasone [Decadron] 4 mg PO DAILY #4 tablet 02/20/18 Clindamycin HCl [Clindamycin 300MG 300 mg PO Q6H #28 capsule 10/16/18 CAP] Nystatin 1 applic TP BID PRN #1 powder 10/16/18 - Allergies Allergies/Adverse Reactions: Allergies Allergy/AdvReac Type Severity Reaction Status Date / Time No Known Drug Allergies Allergy Verified 02/20/18 04:44 - Social History Does the pt smoke?: Yes Smoking Status: Current every day smoker Does the pt drink ETOH?: No Does the pt have substance abuse?: No - Immunizations Immunizations are current?: Yes - POLST Patient has POLST: No PD ED PE NORMAL - General General: Alert and oriented X 3 - HEENT HEENT: Atraumatic - Respiratory Respiratory: No respiratory distress - Extremities Extremities: Other (There is some mild edema over the inferior lateral malleolus. Patient is tender along the Achilles tendon, Efldman's test is normal with good plantarflexion of the foot. Patient is able to dorsiflex and plantarflex her ankle somewhat, though this is painful. Sensation is intact light touch, and pulses are strong and symmetric bilaterally.) Results - Vitals Vitals: Vital Signs - 24 hr 06/29/19 20:51 Temperature 36.6 C Heart Rate 101 H Respiratory 20 Rate Blood Pressure 153/82 H O2 Saturation 100 Oxygen O2 Source Room air - Rads (name of study) XR ankle Radiology: Other (No acute osseous abnormality) Bedside POCUS achilles Radiology: Other (No hematoma or tendon disruption seen.) PD MEDICAL DECISION MAKING - ED course Complexity details: considered differential (Sprain, strain, muscle injury, ten don disruption, achilles rupture) ED course: On exam patient has some edema over the lateral malleolus, and some tenderness along the Achilles tendon, however she is able to dorsiflex and plantarflex her ankle, her Feldman's test is normal, and [id number] ultrasound shows no signs of tendon disruption. I do not see signs of tendon rupture or significant tear today. Her x-ray is negative for fracture. I discussed with her that she may have a strain or partial tear of muscle or tendon, or she may have sprained her ankle. Occult fracture less likely given her mechanism. Given her reassuring results and exam at this time, we will treat with a air splint and crutches and supportive care, if her symptoms or not improving she will follow- up with her primary care provider for reexamination and consideration of imaging to rule out occult fracture or more significant tendon/ligamentous injury. She is given a dose of oxycodone, Tylenol, and ibuprofen here in the emergency department. Patient agrees with this plan and was discharged home in the care of family Departure - Departure Disposition: Home, Self Care Clinical Impression: Ankle pain Qualifiers: Chronicity: acute Laterality: left Qualified Code(s): M25.572 - Pain in left ankle and joints of left foot Condition: Good Follow-Up: Claritza Goss MD [Primary Care Provider] - Within 1 week Comments: Your x-ray did not show any signs of broken bones today, and your ultrasound and did not show any obvious disruption of the Achilles tendon. Please use the cr utches and the splint provided, if you are having persistent or not improving pain or if you are unable to flex and extend your ankle normally in 1 week, follow-up with your primary care provider for reassessment and consideration of repeat X-rays and potentially an ultrasound to check for damage to the tendons or muscles of your leg. You may take ibuprofen 600 mg every 6 hours as needed for pain, and Tylenol 650 mg every 6 hours as needed for pain. Discharge Date/Time: 06/29/19 22:52
--- NOTE | 2019-06-29 21:59 | XRAY Report ---
Reason: Matthews a pop in the back of her heal after extension Procedure Date: 06/29/2019 Accession Number: [id number] / [id number] Procedure: XR - Ankle 3 View LT CPT Code: Final Report FULL RESULT: EXAM: LEFT ANKLE RADIOGRAPHY EXAM DATE: 06/29/2019 09:35 PM. CLINICAL HISTORY: Matthews a pop in the back of her heel after extension. COMPARISON: ANKLE 2 VIEW LT 08/15/2017 4:23 PM. TECHNIQUE: 4 views. FINDINGS: Bones: Normal. No fractures or bone lesions. Joints: Normal. No effusion. No subluxations. The ankle mortise is normally aligned. Soft Tissues: Large Achilles calcaneal enthesophyte, unchanged, without norma Achilles tendon soft tissue swelling. IMPRESSION: 1. Large Achilles calcaneal enthesophyte without norma soft tissue swelling, as before. 2. Otherwise negative left ankle series. RADIA
[2019-06-29] MEDS ORDERED: ACETAMINOPHEN 325 MG TABLET PO STA (22:02)
[2019-06-29] MEDS ORDERED: oxyCODONE 5 MG TABLET PO STA (22:02)
[2019-06-29] MEDS ORDERED: IBUPROFEN 600 MG TABLET PO STA (22:02)
== END 2019-06-29 22:52 | disposition home or self-care (01) ==
LOC: ED 20:39
DX: M25.572 Pain in left ankle and joints of left foot (principal); M77.52 Other enthesopathy of left foot and ankle; F17.200 Nicotine dependence, unspecified, uncomplicated
CPT/HCPCS: 73610; 99283; A9270

== ENCOUNTER 2019-11-25 19:08 | Emergency (ER) | payer MEDICAID ==
[2019-11-25 19:17] VITALS: BP 130/92
--- NOTE | 2019-11-25 20:04 | ED Physician Documentation ---
History of Present Illness - Stated complaint Stated Complaint: PAINFUL SWALLOWING - Chief complaint Chief Complaint: Heent - History obtained from History obtained from: Patient (Patient is a 54-year-old female presents with a chief complaint of sore throat and burning on swallowing without fevers or headache or neck pain or rashes.She reports a history of inflammatory bowel disease previously but currently is not taking any medications she denies any abdominal pain chest pain or shortness of breath.Patient denies any recent travel outside the country.) Review of Systems Constitutional: reports: Reviewed and negative Eyes: reports: Reviewed and negative Ears: reports: Reviewed and negative Nose: reports: Reviewed and negative Throat: reports: Sore throat Cardiac: reports: Reviewed and negative Respiratory: reports: Reviewed and negative GI: reports: Reviewed and negative : reports: Reviewed and negative Skin: reports: Reviewed and negative Musculoskeletal: reports: Reviewed and negative Neurologic: reports: Reviewed and negative Psychiatric: reports: Reviewed and negative Endocrine: reports: Reviewed and negative Immunocompromised: reports: Reviewed and negative PD PAST MEDICAL HISTORY - Past Medical History Past Medical History: Yes Cardiovascular: None Respiratory: None GI: Ulcerative colitis Psych: Anxiety - Past Surgical History Past Surgical History: Yes General: Cholecystectomy, Appendectomy 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 - Present Medications Home Medications: Ambulatory Orders Medication Instructions Recorded Confirmed No Known Home Medications 11/25/19 11/25/19 - Allergies Allergies/Adverse Reactions: Allergies Allergy/AdvReac Type Severity Reaction Status Date / Time codeine Allergy Unknown Verified 11/25/19 19:18 morphine Allergy Unknown Verified 11/25/19 19:18 Sulfa (Sulfonamide Allergy Unknown Verified 11/25/19 19:18 Antibiotics) - Social History Does the pt smoke?: Yes Smoking Status: Current every day smoker Does the pt drink ETOH?: No Does the pt have substance abuse?: No - Immunizations Immunizations are current?: Yes - POLST Patient has POLST: No PD ED PE NORMAL - Vitals Vital signs reviewed: Yes - General General: Alert and oriented X 3, No acute distress, Well developed/nourished - HEENT HEENT: Atraumatic, PERRL, EOMI, Ears normal, Moist mucous membranes, Dentition benign, Other (Oropharynx is mildly erythematous, uvula is midline normal voice tolerating secretions no signs of ANUG or Amairani's.Normal voice.No signs of respiratory distress.There is no anterior posterior cervical lymphadenopathy, no occipital lymphadenopathy, trachea is midline, no thyromegaly, no JVD and no carotid bruits.) - Neck Neck: Supple, no meningeal sign - Cardiac Cardiac: RRR, No murmur, Strong equal pulses - Respiratory Respiratory: No respiratory distress, Clear bilaterally - Abdomen Abdomen: Normal bowel sounds, Soft, Non tender, Non distended, No organomegaly - Derm Derm: Normal color, Warm and dry, No rash - Extremities Extremities: No deformity, No tenderness to palpate, Normal ROM s pain, No edema, No calf tenderness / cord - Neuro Neuro: Alert and oriented X 3, negative stripper 2-12 intact, No motor deficit, No sensory deficit, Normal speech - Psych Psych: Normal mood, Normal affect Results - Vitals Vitals: Vital Signs - 24 hr 11/25/19 19:14 Temperature 36.9 C Heart Rate 100 Respiratory 16 Rate Blood Pressure 130/92 H O2 Saturation 95 Oxygen O2 Source Room air - Labs Labs: Laboratory Tests 11/25/19 20:23 Group A Strep Rapid Negative PD MEDICAL DECISION MAKING - ED course Complexity details: considered differential (Patient presents with sore throat with no other symptoms, no headache, no neck pain no fevers, no recent illnesses she did try taking Tylenol earlier today she is got no signs of ANUG or Amairani's or retro-pharyngeal abscess her uvula is midline. She has a normal voice. Neck is supple without meningeal signs.) Departure - Departure Disposition: 01 Home, Self Care Clinical Impression: Pharyngitis Qualifiers: Pharyngitis/tonsillitis etiology: unspecified etiology Qualified Code(s): J02.9 - Acute pharyngitis, unspecified Condition: Stable Instructions: ED Pharyngitis Viral Follow-Up: Claritza Goss MD [Primary Care Provider] - Comments: Hydrate well, alternate ibuprofen and Tylenol as needed for pain and fever. Call your primary care provider tomorrow morning for recheck.
[2019-11-25] MEDS ORDERED: CHERRY SYRUP 10 ML UDC PO ONE (20:11)
[2019-11-25] MEDS ORDERED: DEXAMETHASONE 10 MG/ML VIAL PO STA (20:11)
[2019-11-25 20:34] LABS: RAPID STREP SCREEN Negative (Negative)
[2019-11-25] MEDS ORDERED: IBUPROFEN 800 MG TABLET PO STA (20:49)
[2019-11-25] MEDS ORDERED: LIDOCAINE VISCOUS 2% 15 ML UDC TOP STA (20:55)
== END 2019-11-25 21:05 | disposition home or self-care (01) ==
LOC: ED 19:08
DX: J02.9 Acute pharyngitis, unspecified (principal); F17.200 Nicotine dependence, unspecified, uncomplicated
CPT/HCPCS: 87070; 87430; 99283; 99284; A9270

== ENCOUNTER 2020-01-21 11:12 | Emergency (ER) | payer MEDICAID ==
--- NOTE | 2020-01-21 12:16 | XRAY Report ---
PROCEDURE: Hand 3 View RT INDICATIONS: fall TECHNIQUE: 3 views of the hand(s) acquired. COMPARISON: None FINDINGS: Bones: There is suggestion of cortical irregularity involving the volar base of the fourth finger mi ddle phalanx. Remainder of the osseous structures appear intact. No dislocations. No suspicious bony lesions. 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 Soft tissues: No suspicious soft tissue calcifications. IMPRESSION: Possible nondisplaced volar base fracture of the fourth finger middle phalanx. Recommend correlation with examination. Reviewed by: Tung Hendrickson MD on 01/21/2020 12:15 PM PDT Approved by: Tung Hendrickson MD on 01/21/2020 12:15 PM PDT Station ID: [id number]
--- NOTE | 2020-01-21 12:18 | XRAY Report ---
PROCEDURE: Wrist 3 View RT INDICATIONS: fall TECHNIQUE: 3 views of the wrist were acquired. COMPARISON: None. FINDINGS: Bones: No fractures or dislocations. No suspicious bony lesions. Thin curvilinear density over the dorsal aspect of the right breast seen only on the lateral view is favored to represent continuation of the cortex of the lunate. Soft tissues: No suspicious soft tissue calcifications. IMPRESSION: Right wrist without acute fracture or dislocation. If there is persistent clinical concern for a radiographically occult fracture, recommend immobilizat ion and repeat imaging in 10 to 14 days. Reviewed by: Tung Hendrickson MD on 01/21/2020 12:17 PM PDT Approved by: Tung Hendrickson MD on 01/21/2020 12:17 PM PDT Station ID: [id number]
--- NOTE | 2020-01-21 12:39 | ED Physician Documentation ---
PD HPI UPPER EXT INJURY - Stated complaint Stated Complaint: RT HAND INJ - Chief complaint Chief Complaint: Ext Problem - History obtained from History obtained from: Patient - History of Present Illness Location: Right, Wrist, Hand Type of injury: Fall Where injury occurred: Home Timing - onset: How many days ago (4) Timing - details: Abrupt onset Pain level max: 10 Pain level now: 8 Improved by: Rest, Ice, Immobilization Worsened by: Moving, Palpating Associated symptoms: No: Weakness, Numbness, Tingling Contributing factors: No: Anticoagulated, Prior ortho surgery Similar symptoms before: No: Has not had sx before - Additonal information Additional information: 54-year-old female presents the emergency department with right wrist and right hand pain after a fall at home 4 days ago. This was an apparent FOOSH injury. - Patient is unable to flex or extend the wrist secondary to the pain. She denies any history of previous injury. She is right-hand dominant. She has tried Tylenol and Motrin at home for pain without relief. 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 - Present Medications Home Medications: Ambulatory Orders Medication Instructions Recorded Confirmed Hydrocodone/Acetaminophen 1 each PO BID PRN #15 tablet 01/21/20 [Hydrocodone-Acetamin 5-325 mg] - Allergies Allergies/Adverse Reactions: Allergies Allergy/AdvReac Type Severity Reaction Status Date / Time codeine Allergy Unknown Verified 01/21/20 11:19 morphine Allergy Unknown Verified 01/21/20 11:19 Sulfa (Sulfonamide Allergy Unknown Verified 01/21/20 11:19 Antibiotics) - Social History Does the pt smoke?: Yes Smoking Status: Current every day smoker Does the pt drink ETOH?: No Does the pt have substance abuse?: No - Immunizations Immunizations are current?: Yes - POLST Patient has POLST: No PD ED PE EXPANDED - Extremities Extremities: Tenderness, Limited ROM, Swelling, Bruising, Right wrist, Right hand, Other (2+ radial and 1+ ulnar pulse right arm. Significant tenderness base 4/5 phalanx. No scaphoid tenderness. Limited ROM secondary to pain. B risk CMST) Results - Vitals Vitals: Vital Signs - 24 hr 07/02/20 11:15 Heart Rate 102 H Respiratory 20 Rate Blood Pressure 143/82 H O2 Saturation 100 Oxygen O2 Source Room air - Rads (name of study) right wrist xray: Radiology: Final report received (Right wrist without acute fracture dislocation) right hand: Radiology: Final report received (Possible nondisplaced volar base fracture of the fourth middle phalanx) PD MEDICAL DECISION MAKING - ED course Complexity details: reviewed results, re-evaluated patient, d/w patient ED course: 54-year-old female here with acute right wrist and hand pain after a FOOSH injury this a.m. - Patient was noted to be quite tender at the base of the ring and small finger phalanx. X-ray is suggestive of possible fracture at the base of the fourth proximal phalanx. - Patient has been placed in an ulnar gutter splint. She will be referred to orthopedics for follow-up. - We discussed routine wound and splint care at home.Patient will also be given a very limited number of Vicodin for analgesia at home - I have reevaluated the splint after placement. Patient has intact sensation and movement of distal fingers without parathesias. Departure - Departure Disposition: 01 Home, Self Care Clinical Impression: Proximal phalanx fracture of finger Qualifiers: Encounter type: initial encounter Finger: ring finger Fracture type: closed Fracture alignment: nondisplaced Laterality: right Qualified Code(s): S62.644A - Nondisplaced fracture of proximal phalanx of right ring finger, initial encounter for closed fracture Condition: Stable Instructions: ED Fx Finger Closed Ch Follow-Up: [facility] [Provider Group] - Within 1 week Prescriptions: Hydrocodone/Acetaminophen [Hydrocodone-Acetamin 5-325 mg] 1 each PO BID PRN #15 tablet PRN Reason: Pain Comments: Maria the x-rays suggest that you may have a small nondisplaced fracture at the base of your fourth middle phalanx. We have placed you in a splint. The splint should not be removed unless it becomes too tight or you lose sensation in your fingers. Please wear a bag over your arm when showering. I would like you to call the orthopedics office to schedule follow-up of this fracture within the next week.Return here if you develop any fevers, have numbness or tingling in your fingers, or have increased pain. I have prescribed you some hydrocodone for pain control at home. You may also try and supplement that with ibuprofen. Please do not drive if taking hydrocodone it may make you sleepy.
[2020-01-21] MEDS ORDERED: HYDROmorphone 1 MG/ML CARPUJECT IM STA (12:40)
[2020-01-21 13:30] VITALS: BP 122/84
== END 2020-01-21 13:30 | disposition home or self-care (01) ==
LOC: ED 11:12
DX: S62.614A Displaced fracture of proximal phalanx of right ring finger, initial encounter for closed fracture (principal); W17.89XA Other fall from one level to another, initial encounter; Y92.008 Other place in unspecified non-institutional (private) residence as the place of occurrence of the external cause; F17.200 Nicotine dependence, unspecified, uncomplicated
CPT/HCPCS: 73110; 73130; 96372; 99281; 99283; J1170

== ENCOUNTER 2020-09-05 20:13 | Emergency (ER) | payer MEDICAID ==
--- NOTE | 2020-09-05 21:16 | XRAY Report ---
PROCEDURE: Wrist 4 View LT INDICATIONS: Trauma TECHNIQUE: 4 views of the wrist were acquired. COMPARISON: None FINDINGS: Bones: No fractures or dislocations. No suspicious bony lesions. Scaphoid view: No scaphoid fracture Soft tissues: No suspicious soft tissue calcifications. IMPRESSION: No acute traumatic abnormality of the left wrist. Reviewed by: Victorino Bonds on 09/05/2020 9:15 PM [facility] Approved by: Victorino Bonds on 09/05/2020 9:15 PM [facility] Station ID: [id number]
--- NOTE | 2020-09-05 21:16 | XRAY Report ---
PROCEDURE: Wrist 4 View RT INDICATIONS: Trauma TECHNIQUE: 4 views of the wrist were acquired. COMPARISON: None FINDINGS: Bones: No fractures or dislocations. No suspicious bony lesions. Scaphoid view: No scaphoid fracture Soft tissues: No suspicious soft tissue calcifications. IMPRESSION: No acute abnormality of the right wrist. Reviewed by: Victorino Bonds on 09/05/2020 9:14 PM [facility] Approved by: Victorino Bonds on 09/05/2020 9:14 PM [facility] Station ID: [id number]
--- NOTE | 2020-09-05 21:58 | ED Physician Documentation ---
PD HPI UPPER EXT INJURY - Stated complaint Stated Complaint: RT WRIST PAIN / FALL - Chief complaint Chief Complaint: Trauma Ext - History obtained from History obtained from: Patient - History of Present Illness Location: Right, Left, Wrist Type of injury: Fall Where injury occurred: Home Timing - onset: Last night (fell forward onto both wrists, with pain in both, but more in right wrist.) Timing - details: Abrupt onset, Still present Worsened by: Moving, Palpating Associated symptoms: Swelling (right wrist). 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 - Present Medications Home Medications: Ambulatory Orders Medication Instructions Recorded Confirmed No Known Home Medications 09/05/20 09/05/20 - Allergies Allergies/Adverse Reactions: Allergies Allergy/AdvReac Type Severity Reaction Status Date / Time codeine Allergy Unknown Verified 09/05/20 20:15 morphine Allergy Unknown Verified 09/05/20 20:15 Sulfa (Sulfonamide Allergy Unknown Verified 09/05/20 20:15 Antibiotics) - Social History Does the pt smoke?: Yes Smoking Status: Current every day smoker Does the pt drink ETOH?: No Does the pt have substance abuse?: No - Immunizations Immunizations are current?: Yes - POLST Patient has POLST: No PD ED PE NORMAL - Vitals Vital signs reviewed: Yes - General General: Alert and oriented X 3, No acute distress, Well developed/nourished - Derm Derm: Normal color, Warm and dry - Extremities Extremities: Other (left wrist with tenderness dorsal aspect, without deformity. No noted swelling. Mildly limited ROM. Right wrist with some swelling, no obvious defromity. Guarded ROM. Normal sensation and movement in the fingers. Good color and cap refill. Tender mostly dorsal distal radius. Not in snuffbox. ) - Neuro Neuro: Alert and oriented X 3, No motor deficit, No sensory deficit Results - Vitals Vitals: Vital Signs - 24 hr 09/05/20 09/05/20 20:16 22:26 Temperature 36.9 C Heart Rate 110 H 99 Respiratory 18 18 Rate Blood Pressure 136/93 H 113/78 O2 Saturation 100 100 Oxygen O2 Source Room air - Rads (name of study) bilateral wrists Radiology: Prelim report reviewed (no acute fractures. ), See rad report PD MEDICAL DECISION MAKING - ED course Complexity details: considered differential (both wrists painful but right more, with swelling. Will splint it. ), d/w patient Departure - Departure Disposition: 01 Home, Self Care Clinical Impression: Accidental fall Qualifiers: Encounter type: initial encounter Qualified Code(s): W19.XXXA - Unspecified fall, initial encounter Wrist sprain Qualifiers: Encounter type: initial encounter Laterality: unspecified laterality Qualified Code(s): S63.509A - Unspecified sprain of unspecified wrist, initial encounter Condition: Stable Record reviewed to determine appropriate education?: Yes Instructions: ED Sprain Wrist Follow-Up: [facility] [Provider Group] Comments: Wrist splint for comfort for the next several days to week. Have it off periodically for gentle range of motion. Its okay to remove it for showers and changing close etc. Recheck if not improved over the next week. Ibuprofen 3 times a day. To that add Tylenol every 4 hours if needed for pain. Discharge Date/Time: 09/05/20 22:29
[2020-09-05] MEDS ORDERED: IBUPROFEN 600 MG TABLET PO STA (22:11)
[2020-09-05] MEDS ORDERED: HYDROcod/ACETAM 5/325 MG TABLET PO STA (22:11)
[2020-09-05 22:29] VITALS: BP 113/78
== END 2020-09-05 22:29 | disposition home or self-care (01) ==
LOC: ED 20:13
DX: S63.501A Unspecified sprain of right wrist, initial encounter (principal); W18.30XA Fall on same level, unspecified, initial encounter; Y92.009 Unspecified place in unspecified non-institutional (private) residence as the place of occurrence of the external cause; F17.200 Nicotine dependence, unspecified, uncomplicated
CPT/HCPCS: 73110; 99282; 99283; A9270

== ENCOUNTER 2020-12-02 20:08 | Emergency (ER) | payer MEDICAID ==
[2020-12-02] MEDS ORDERED: HYDROmorphone 1 MG/ML CARPUJECT IVP STA (20:35)
[2020-12-02] MEDS ORDERED: ACETAMINOPHEN 500 MG TABLET PO STA (21:09)
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
[2020-12-02] MEDS ORDERED: KETOROLAC 60 MG/2 ML VIAL IM STA (21:38)
[2020-12-02 22:05] VITALS: BP 141/95
== END 2020-12-02 22:21 | disposition home or self-care (01) ==
LOC: ED 20:08
DX: S09.90XA Unspecified injury of head, initial encounter (principal); S19.9XXA Unspecified injury of neck, initial encounter; S39.92XA Unspecified injury of lower back, initial encounter; V48.1XXA Car passenger injured in noncollision transport accident in nontraffic accident, initial encounter; Y92.410 Unspecified street and highway as the place of occurrence of the external cause; F17.200 Nicotine dependence, unspecified, uncomplicated
CPT/HCPCS: 70450; 72125; 72128; 72131; 96372; 99283; 99284; A9270; 80053; 80320; 83690; 83735; 85025

== ENCOUNTER 2021-01-13 22:32 | Emergency (ER) | payer MEDICAID ==
--- NOTE | 2021-01-13 23:20 | ED Physician Documentation ---
PD HPI LOWER EXT INJURY - Stated complaint Stated Complaint: R FOOT INJ - Chief complaint Chief Complaint: Ext Problem - History obtained from History obtained from: Patient - History of Present Illness PD HPI LOW EXT INJURY LOCATION: Right, Foot Type of injury: Twist. No: Fall, Blunt / blow Where injury occurred: Home Timing - onset: How many days ago (few) Timing - duration: Days (few) Timing - details: Abrupt onset (feeling of popping in back of heel with walking. Also pain lateral ankle. Some twisting injury but was not forceful.), Still present Associated symptoms: No: Weakness, Numbness Similar symptoms before: Diagnosis (had partial achilles rupture in the past, was in boot for 6 months.) Review of Systems Constitutional: denies: Fever Nose: denies: Rhinorrhea / runny nose, Congestion Throat: denies: Sore throat Respiratory: denies: Cough Skin: denies: Abrasion (s), Laceration (s) Neurologic: denies: Focal weakness, Numbness PD PAST MEDICAL HISTORY - Past Medical History Past Medical History: Yes Cardiovascular: None Respiratory: None Neuro: None Endocrine/Autoimmune: None GI: 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 : None HEENT: None Psych: Anxiety Musculoskeletal: None Derm: None - Past Surgical History Past Surgical History: Yes General: Cholecystectomy, Appendectomy 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 - Present Medications Home Medications: Ambulatory Orders Medication Instructions Recorded Confirmed HYDROcod/ACETAM 5/325 [[place] 5/325] 1 ea PO Q6H PRN #15 tablet 01/14/21 Naproxen Sodium [Naprelan] 375 mg PO BID #30 01/14/21 - Allergies Allergies/Adverse Reactions: Allergies Allergy/AdvReac Type Severity Reaction Status Date / Time codeine Allergy Unknown Verified 01/13/21 22:44 morphine Allergy Unknown Verified 01/13/21 22:44 Sulfa (Sulfonamide Allergy Unknown Verified 01/13/21 22:44 Antibiotics) - Social History Does the pt smoke?: Yes Smoking Status: Current every day smoker Does the pt drink ETOH?: No Does the pt have substance abuse?: No - Immunizations Immunizations are current?: Yes - POLST Patient has POLST: No PD ED PE NORMAL - Vitals Vital signs reviewed: Yes - General General: Alert and oriented X 3, Well developed/nourished, Other (appears in pain with ROM of the ankle and plantarflexion. ) - Derm Derm: Normal color, Warm and dry - Extremities Extremities: Other (right achilles intact and firm. Tender at heel insertion. No redness. There is tender along anterolateral ankle as well with mild local swelling. ) - Neuro Neuro: Alert and oriented X 3, No motor deficit, No sensory deficit, Normal speech Results - Vitals Vitals: Vital Signs - 24 hr 01/13/21 01/13/21 01/14/21 22:41 23:58 00:39 Temperature 36.6 C Heart Rate 100 87 Respiratory 16 18 14 Rate Blood Pressure 154/88 H 118/80 O2 Saturation 98 97 01/14/21 00:42 Temperature Heart Rate Respiratory 15 Rate Blood Pressure O2 Saturation Oxygen O2 Source Room air - Rads (name of study) ankle Radiology: Prelim report reviewed (no fracture. ), EMP read contemporaneously (spur of the posterior calcaneus with possible avulsion of the spurring suggesting new achilles injury.), See rad report PD MEDICAL DECISION MAKING - ED course Complexity details: reviewed results (spurring posterior heel c/w prior/chronic tendonitis. There is perhaps small avulsion of the spur suggesting acute injury.), considered differential, d/w patient Departure - Departure Disposition: 01 Home, Self Care Clinical Impression: Ankle sprain Qualifiers: Encounter type: initial encounter Involved ligament of ankle: unspecified ligament Laterality: right Qualified Code(s): S93.401A - Sprain of unspecified ligament of right ankle, initial encounter Achilles tendonitis Qualifiers: Laterality: right Qualified Code(s): M76.61 - Achilles tendinitis, right leg Condition: Stable Record reviewed to determine appropriate education?: Yes Instructions: Achilles Tendonitis Follow-Up: Camden Ceron MD [Provider Admit Priv/Credential] - Prescriptions: Naproxen Sodium [Naprelan] 375 mg PO BID #30 HYDROcod/ACETAM 5/325 [[place] 5/325] 1 ea PO Q6H PRN #15 tablet PRN Reason: Pain Comments: Use the walking cast boot when up and around for the next 2 to 3 weeks. Crutches as needed for partial to no weightbearing as needed for comfort. Use naproxen anti-inflammatory twice daily with food for 10 days to 2 weeks to help with the inflammation. Add Tylenol every 4 hours or hydrocodone if needed for worse pain. Follow-up with orthopedics, call on Saturday for an appointment for this coming week. Activity as tolerated. I am prescribing a short course of narcotic pain medication for you. These are potentially dangerous and addictive medications that should be used carefully. These medications may constipate you. Take an [id number] stool softener such as docusate twice daily with plenty of water while taking these medications. If you go 24 hours without a bowel movement, take [id number] MiraLAX, per package instructions. Do not drink or drive while taking these medications. If you received narcotic or sedating medications while in the emergency department do not drive for 24 hours. Store this medication in a safe, secure place and out of reach of children. It is a violation of federal law to give or sell this medication to another person or to use in a manner other than prescribed. The ED will not refill narcotic prescriptions, including prescriptions lost or stolen. You can dispose of unwanted medications at the [facility]'s office or at several pharmacies such as [facility]. Discharge Date/Time: 01/14/21 01:48
[2021-01-13] MEDS ORDERED: HYDROcod/ACETAM 5/325 MG TABLET PO STA (23:37)
[2021-01-14 00:40] VITALS: BP 118/80
--- NOTE | 2021-01-14 08:23 | XRAY Report ---
PROCEDURE: Ankle 3 View RT INDICATIONS: ankle and heel pain TECHNIQUE: 4 views of the ankle were acquired. COMPARISON: None FINDINGS: Bones: No fractures or dislocations. Ankle mortise is normally aligned. No suspicious bony lesions . Soft tissues: No tibiotalar joint effusion. Achilles tendon appears normal. IMPRESSION: No evidence acute bony abnormality of the right ankle. A preliminary report with the above findings was provided at the time of the study by [facility]. Reviewed by: Rusty Anderson MD on 01/14/2021 7:22 AM TORIE Approved by: Rusty Anderson MD on 01/14/2021 7:22 AM TORIE Station ID: [id number]
== END 2021-01-14 01:48 | disposition home or self-care (01) ==
LOC: ED 22:32
DX: S93.401A Sprain of unspecified ligament of right ankle, initial encounter (principal); X50.1XXA Overexertion from prolonged static or awkward postures, initial encounter; M76.61 Achilles tendinitis, right leg; F17.200 Nicotine dependence, unspecified, uncomplicated
CPT/HCPCS: 73610; 99283; A9270

== ENCOUNTER 2021-04-06 17:26 | Outpatient (CLI) | payer MEDICAID ==
--- NOTE | 2021-04-07 08:47 | XRAY Report ---
PROCEDURE: Knee 3 View LT INDICATIONS: KNEE JOINT PAIN TECHNIQUE: 3 views of the left knee(s) were acquired. COMPARISON: None. FINDINGS: Bones: No fractures or dislocations. No suspicious bony lesions. Soft tissues: Small suprapatellar joint effusion.. No suspicious soft tissue calcifications. IMPRESSION: Small suprapatellar joint effusion suggesting possible internal derangement. Consider MR I. Reviewed by: Victorino Bonds on 04/07/2021 8:45 AM PDT Approved by: Victorino Bonds on 04/07/2021 8:45 AM PDT Station ID: [id number]
== END 2021-04-06 17:27 | disposition home or self-care (01) ==
LOC: LAB 17:26 → DI 17:27
PROVIDERS: ATTEND Physician Assistant
DX: M25.462 Effusion, left knee (principal)
CPT/HCPCS: 36415; 85651; 86140; 86200; 86430

== ENCOUNTER 2021-04-16 11:29 | Emergency (ER) | payer MEDICAID ==
[2021-04-16 11:43] VITALS: BP 153/100
== END 2021-04-16 12:26 | disposition left against medical advice (07) ==
LOC: ED 11:29
DX: Z53.21 Procedure and treatment not carried out due to patient leaving prior to being seen by health care provider (principal)

== ENCOUNTER 2021-05-29 14:47 | Outpatient (CLI) | payer MEDICAID ==
--- NOTE | 2021-05-29 17:04 | MRI Report ---
PROCEDURE: Knee LT W/O INDICATIONS: LEFT KNEE INTERNAL DERANGEMENT TECHNIQUE: Noncontrast sagittal PD fast spin echo and T2 fast spin echo with fat saturation, sagittal 3-D gradie nt sequence with fat saturation; coronal T1 spin echo and PD fast spin echo with fat saturation, and axial PD fast spin echo with fat saturation through the knee. COMPARISON: None. FINDINGS: Image quality: Excellent. Menisci: Medial meniscus is intact. Signal abnormality involving posterior horn of lateral meniscus e xtending to inferior articulating surface is seen suggestive of subtle oblique tear. The meniscal parviz t ligaments appear intact. Cruciate ligaments: The anterior and posterior cruciate ligaments appear intact. Medial structures: Moderate grade MCL sprain/partial thickness tear is seen. The posterior oblique li gament, semimembranosus tendon insertions, and oblique popliteal ligament, and meniscocapsular juncti on appear intact. Visualized portions of the pes anserinus tendons appear normal. No abnormal bursa l fluid. Lateral structures: Low-grade proximal LCL sprain/partial thickness tear is noted. The long and short heads of the biceps femoris tendon appear intact. The popliteus tendon appears normal; the popliteo fibular ligament appears intact. The posterosuperior and anteroinferior popliteomeniscal fascicles a ppear intact. The arcuate and fabellofibular ligaments appear intact, around the lateral inferior ge niculate artery. Iliotibial band appears normal. Anterior structures: The quadriceps and patellar tendons appear intact. Patellar alignment is aniceto l. No femoral trochlear dysplasia or ventral trochlear prominence. No edema in the infrapatellar fa t pad. Bones and cartilage: There is marrow edema involving anterior and posterior periphery of proximal tib ia extending to medial tibial plateau and marrow edema seen involving posterior medial aspect of medi al femoral condyle and posterior lateral periphery of lateral femoral condyle. No discrete fracture l ine is seen. Moderate medial and lateral femoral tibial compartment osteoarthritis and chondromalacia is seen. Patella cartilage is intact. Joint space: There is moderate to large amount of joint fluid with thickened synovial lining concern ing for synovitis. No definite intra-articular loose body. Complex appearing popliteal cyst is seen a nd measures up to 2.3 x 2.8 x 5.6 cm in size suggestive of a hemorrhagic popliteal cyst. Normal appea ring synovial plicae are incidentally noted. IMPRESSION: 1. Finding is concerning for subtle oblique tear involving posterior horn of lateral meniscus extendi ng to inferior articulating surface. No focal medial meniscal tear. 2. Cruciate ligaments are intact. Moderate grade MCL sprain/partial thickness tear and low-grade prox imal LCL sprain/partial thickness tear. 3. Moderate medial femoral tibial compartment and lateral femoral tibial compartment osteoarthritis a nd chondromalacia. Patella cartilage is intact. Bony contusion in medial and lateral femoral tibial c ompartments as above. No gross fracture or dislocation. 4. Moderate to large amount of joint fluid with suggestion of synovitis. No gross intra-articular loo se body. Popliteal cyst with internal debris concerning for hemorrhagic cyst. Reviewed by: Moody Stinson MD on 05/29/2021 5:03 PM PST Approved by: Moody Stinson MD on 05/29/2021 5:03 PM PST Station ID: [id number]
== END 2021-05-29 14:48 | disposition home or self-care (01) ==
LOC: DI 14:47
PROVIDERS: ATTEND Physician Assistant
DX: S83.412A Sprain of medial collateral ligament of left knee, initial encounter (principal); S83.422A Sprain of lateral collateral ligament of left knee, initial encounter; M17.12 Unilateral primary osteoarthritis, left knee; M94.262 Chondromalacia, left knee; M25.462 Effusion, left knee; M71.22 Synovial cyst of popliteal space [Baker], left knee

== ENCOUNTER 2022-06-30 01:04 | Emergency (ER) | payer MEDICAID ==
--- NOTE | 2022-06-30 01:27 | ED Physician Documentation ---
History of Present Illness - Stated complaint Stated Complaint: left ankle pain - Chief complaint Chief Complaint: Ext Problem - History obtained from History obtained from: Patient - History of Present Illness Timing: Other (3 months) Pain level now: 7 Improved by: rest Worsened by: weight-bearing, palpation - Additonal information Additional information: c/o "having some issues with my left heel" (per patient). She c/o approximately 3 months of left heel pain, "mostly in the mornings", worse with palpation , weight-bearing. Denies injury. She says she does not have a primary care provider. When I ask why , after three months, she comes to the ED at this time, she says she has "tried everything: heat, ice, rest, elevation. It wasn't getting any better so I thought I'd come see a professional". 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 POWDER PREMIX BLENDER: Hysterectomy - Present Medications Home Medications: Ambulatory Orders Medication Instructions Recorded Confirmed HYDROcod/ACETAM 5/325 [[place] 5/325] 1 ea PO Q6H PRN #15 tablet 01/14/21 Naproxen Sodium [Naprelan] 375 mg PO BID #30 01/14/21 Ibuprofen [Motrin] 600 mg PO Q6H PRN #30 tab 06/30/22 - Allergies Allergies/Adverse Reactions: Allergies Allergy/AdvReac Type Severity Reaction Status Date / Time codeine Allergy Unknown Verified 06/30/22 01:26 morphine Allergy Unknown Verified 06/30/22 01:26 Sulfa (Sulfonamide Allergy Unknown Verified 06/30/22 01:26 Antibiotics) - Social History Does the pt smoke?: Yes Smoking Status: Current every day smoker Does the pt drink ETOH?: Yes Does the pt have substance abuse?: No - Immunizations Immunizations are current?: Yes - POLST Patient has POLST: No PD ED PE NORMAL - Vitals Vital signs reviewed: Yes - General General: Alert and oriented X 3, No acute distress, Well developed/nourished - Derm Derm: Normal color, Warm and dry PD ED PE EXPANDED - Extremities Feet visual: 1 - swelling (mild, focal swelling and TTP without erythema or fluctuance), tenderness Results - Vitals Vitals: Vital Signs - 24 hr 06/30/22 06/30/22 01:13 03:00 Temperature 36.6 C 37.0 C Heart Rate 117 H 93 Respiratory 18 18 Rate Blood Pressure 143/98 H 128/91 H O2 Saturation 100 98 Oxygen O2 Source Room air - Rads (name of study) left foot xrays Radiology: Prelim report reviewed, See rad report PD MEDICAL DECISION MAKING - ED course Complexity details: reviewed results, re-evaluated patient, considered differential, d/w patient ED course: c/o few months of gradual onset (without injury), gradually worsening left ankle/foot pain. She has not seen a medical practitioner for this until tonight. xrays demonstrate "enthesophyte at the Achilles tendon insertion with thicken ded appearance of the Achilles tendon. The differential includes tendinopathy, partial tearing, or bursitis. " (per radiologist's reading). I discussed results w/ patient. I explained that further tests and possible treatment is appropriate in the outpatient setting; from the emergency medicine standpoint, there is little else that can be done at this time. She is given crutches to minimize weight-bearing and an air-cast splint placed for support. I emphasized the importance of following up with a primary care provider for reevaluation and possible referral to appropriate specialist(s). Departure - Departure Disposition: 01 Home, Self Care Clinical Impression: Bone spur, Tendonitis of ankle or foot Condition: Good Instructions: Tendinitis Foot, ED Crutch Walking, ED Heel Spur Follow-Up: Camden Ceron MD [Provider Admit Priv/Credential] - Prescriptions: Ibuprofen [Motrin] 600 mg PO Q6H PRN #30 tab PRN Reason: Pain Comments: Follow up, next available appointment with your primary care provider. If you do not have a primary care provider, contact your insurance carrier to ask about options for establishing with a local primary care provider. You might need further testing and/or treatment of your foot/heel problem. The xrays show an abnormality in the area of tenderness and swelling, but it does not indicate a specific diagnosis. Possible causes include inflammation of the tendon (tendonitis), bursitis, partial tear of the tendon. You can weight-bear as tolerated, but use the crutches to minimize weight- bearing, particularly when having pain with weight-bearing.
--- NOTE | 2022-06-30 02:19 | XRAY Report ---
PROCEDURE: Foot 3 View LT INDICATIONS: heel pain x 3 months TECHNIQUE: 3 views of the foot were acquired. COMPARISON: None. FINDINGS: Bones: No fractures or dislocations. There is posterior calcaneal enthesophytes at the Achilles ten don insertion. No suspicious bony lesions. Soft tissues: No tibiotalar joint effusion. Achilles tendon appears thickened distally. IMPRESSION: 1. Enthesophyte at the Achilles tendon insertion with thickened appearance of the Achilles tendon. Th e differential includes tendinopathy, partial tearing, or bursitis. Consider further evaluation with MRI. Reviewed by: Juan Horner MD on 06/30/2022 2:17 AM PST Approved by: Juan Horner MD on 06/30/2022 2:17 AM PST Station ID: [id number]
[2022-06-30 03:17] VITALS: BP 128/91
== END 2022-06-30 03:00 | disposition home or self-care (01) ==
LOC: ED 01:04
DX: M77.8 Other enthesopathies, not elsewhere classified (principal); F17.200 Nicotine dependence, unspecified, uncomplicated
CPT/HCPCS: 99282; 99283

== ENCOUNTER 2022-09-07 07:00 | Outpatient (CLI) | payer MEDICAID ==
--- NOTE | 2022-09-08 08:48 | XRAY Report ---
PROCEDURE: Calcaneus LT INDICATIONS: LEFT RETROCALCANEAL BURSITIS TECHNIQUE: Two views of the calcaneus were acquired. COMPARISON: Left foot radiograph dated 06/30/2022 FINDINGS: Bones: No fractures or dislocations. No suspicious bony lesions. Prominent dorsal calcaneal enthes ophyte is seen. Tiny plantar calcaneal enthesophyte is also noted. Osteoarthritic changes are seen in visualized midfoot and hindfoot joints. Soft tissues: Markedly thickened distal Achilles tendon at its posterior calcaneal insertion is seen. The visualized portion of plantar fascia is intact. IMPRESSION: 1. Prominent dorsal calcaneal enthesophyte formation with associated thickening of distal Achilles te ndon at its calcaneal insertion concerning for tendinosis and partial thickness tear. No gross full-t hickness Achilles tendon rupture. 2. No calcaneal fracture or dislocation. Mild midfoot and hindfoot joint osteoarthritis. Reviewed by: Moody Stinson MD on 09/08/2022 8:47 AM PST Approved by: Moody Stinson MD on 09/08/2022 8:47 AM PST Station ID: [id number]
== END 2022-09-07 23:59 | disposition home or self-care (01) ==
LOC: DI.S 07:00
PROVIDERS: ATTEND Physician Assistant
DX: M77.52 Other enthesopathy of left foot and ankle (principal); M77.32 Calcaneal spur, left foot; M19.072 Primary osteoarthritis, left ankle and foot

== ENCOUNTER → 2023-02-06 | Outpatient (CLI) | payer MEDICAID | END | disposition critical access hospital (66) | LOC: EMS 10:02 | DX: M25.561 Pain in right knee (principal); M25.461 Effusion, right knee | CPT/HCPCS: A0425; A0429; A0999 ==

== ENCOUNTER 2023-02-19 08:00 | Outpatient (CLI) | payer MEDICAID ==
--- NOTE | 2023-02-19 15:42 | XRAY Report ---
PROCEDURE: Knee 3 View LT INDICATIONS: LEFT KNEE PAIN TECHNIQUE: 3 views of the left knee(s) were acquired. COMPARISON: X-ray left knee 02/07/2020 FINDINGS: Bones: No fractures or dislocations. No suspicious bony lesions. Mild lateral patellar subluxatio n. There is mild medial and lateral compartment degenerative narrowing bilaterally. Mild to moderate left patellofemoral narrowing. No erosions. Soft tissues: No knee joint effusion. No suspicious soft tissue calcifications or masses. IMPRESSION: Stable arthritic changes as above. Reviewed by: Christel Calle MD on 02/19/2023 3:41 PM PDT Approved by: Christel Calle MD on 02/19/2023 3:41 PM PDT Station ID: [id number]
== END 2023-02-19 23:59 | disposition home or self-care (01) ==
LOC: DI.WOS 08:00
PROVIDERS: ATTEND Physician Assistant Surgical
DX: M17.12 Unilateral primary osteoarthritis, left knee (principal)

== ENCOUNTER 2023-02-20 17:43 | Outpatient (CLI) | payer MEDICAID ==
--- NOTE | 2023-02-21 11:57 | MRI Report ---
PROCEDURE: KNEE WO - LT INDICATIONS: INTERNAL DERANGEMENT LEFT KNEE TECHNIQUE: Noncontrast sagittal PD fast spin echo and T2 fast spin echo with fat saturation, sagittal 3-D spoile d GE with fat saturation; coronal T1 spin echo and PD fast spin echo with fat saturation, and axial P D fast spin echo with fat saturation through the knee. COMPARISON: Left knee MRI 05/29/2021 and radiographs 02/19/2023 FINDINGS: Image quality: Excellent. Anterior cruciate ligament: Intact. Posterior cruciate ligament: Intact. Medial collateral ligament: Intact. Lateral collateral ligament: Intact. Medial meniscus: There is complex tearing of the medial meniscus with horizontal and vertical longit udinal components of the posterior horn extending to the meniscal body. There is mild extrusion of th e meniscal body beyond the femorotibial joint line. Lateral meniscus: Intact. Medial and lateral tendons: The semimembranosus tendon insertions appear intact. Visualized portion s of the pes anserinus tendons appear normal. The popliteus tendon appears intact. Iliotibial band appears normal. Anterior structures: The patellar tendon and the distal quadriceps tendon appear intact. Nonedematou s suprapatellar enthesophytes are present. Mild patellar tilting is seen without patellar subluxation . No femoral trochlear dysplasia or ventral trochlear prominence. No edema in the infrapatellar fat pad. Bones: No acute trabecular bone injury or fracture. Foci of [id number] signal are seen within the anterior and posterior portions of the central tibial plateau as well as the posterior medial and posterior lateral tibial plateau, and the medial and lateral aspects of the medial and lateral femor al condyles. There is associated loss of T1-weighted signal in these locations. Findings are suspicio us for osseous erosions. Medial femorotibial cartilage: Full-thickness cartilage loss is seen in the posterior weightbearing portion of the medial femoral condyle and medial tibial plateau. Lateral femorotibial cartilage: Generalized cartilage thinning without a focal defect. Patellofemoral cartilage: Mild partial thickness cartilage thinning without a focal defect. Soft tissues: There is a large joint effusion with marked synovial hypertrophy. A large medial popli teal cyst is also seen with internal synovial hypertrophy. No significant blooming is seen on gradien t echo images. No calcifications are seen on prior radiographs. The musculature surrounding the knee is normal in bulk. IMPRESSION: 1.Multiple foci of suspected osseous erosions throughout the joint with a large joint effusion and ma rked synovial hypertrophy. Findings are suspicious for a chronic inflammatory process including an in flammatory arthritis such as rheumatoid arthritis or a chronic indolent infection such as coccidiomyc osis among other etiologies. 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 Recommend correlation with clinical signs and serologies. 2.Complex tearing of the medial meniscus with horizontal and vertical components at the posterior hor n and body and mild meniscal extrusion. 3.Full-thickness cartilage loss in the posterior weightbearing portion of the medial femoral condyle and medial tibial plateau. Mild cartilage thinning is seen in the lateral and anterior compartments. 4.Large medial popliteal cyst with internal synovial hypertrophy. Reviewed by: Preston Nowak MD on 02/21/2023 11:56 AM PDT Approved by: Preston Nowak MD on 02/21/2023 11:56 AM PDT Station ID: [id number]
== END 2023-02-20 17:44 | disposition home or self-care (01) ==
LOC: DI 17:43
PROVIDERS: ATTEND Emergency Medicine
DX: S83.232A Complex tear of medial meniscus, current injury, left knee, initial encounter (principal); M71.22 Synovial cyst of popliteal space [Baker], left knee; M25.462 Effusion, left knee; M23.92 Unspecified internal derangement of left knee

== ENCOUNTER 2023-11-27 08:00 | Outpatient (CLI) | payer MEDICAID ==
--- NOTE | 2023-11-28 11:45 | XRAY Report ---
PROCEDURE: Ankle 3+V LT INDICATIONS: LEFT ANKLE PAIN TECHNIQUE: 3 views of the ankle were acquired. COMPARISON: None. FINDINGS: Bones: No fractures or dislocations. Ankle mortise is normally aligned. No suspicious bony lesions . Dorsal calcaneal enthesophytes. Soft tissues: Moderate tibiotalar joint effusion. Achilles tendon appears normal. Edema within Kage r's fat pad and surrounding the ankle. IMPRESSION: No displaced fractures. Moderate joint effusion. Internal derangement not excluded. Edema within Kager's fat pad and surrounding the ankle. Reviewed by: Alejandro Lanier MD on 11/28/2023 11:44 AM PDT Approved by: Alejandro Lanier MD on 11/28/2023 11:44 AM PDT Station ID: [id number]
== END 2023-11-27 23:59 | disposition home or self-care (01) ==
LOC: DI.S 08:00
PROVIDERS: ATTEND Registered Nurse
DX: M25.572 Pain in left ankle and joints of left foot (principal); M25.472 Effusion, left ankle; R60.0 Localized edema

== ENCOUNTER 2024-03-17 11:12 | Outpatient (CLI) | payer MEDICAID | END 2024-03-17 22:03 | disposition EMS.NT | LOC: EMS 11:12 | DX: M54.2 Cervicalgia (principal); M54.9 Dorsalgia, unspecified; M25.512 Pain in left shoulder; Y04.8XXA Assault by other bodily force, initial encounter; Y92.009 Unspecified place in unspecified non-institutional (private) residence as the place of occurrence of the external cause ==

== ENCOUNTER 2024-03-24 20:49 | Outpatient (CLI) | payer MEDICAID ==
--- NOTE | 2024-03-25 13:20 | XRAY Report ---
PROCEDURE: Knee 3V RT INDICATIONS: RIGHT KNEE PAIN TECHNIQUE: 3 views of the knee(s) were acquired. COMPARISON: None FINDINGS: Bones: No fractures or dislocations. No suspicious bony lesions. Mild to moderate tricompartmenta l arthritic change most severe medially. Soft tissues: Mild knee joint effusion. No suspicious soft tissue calcifications or masses. IMPRESSION: Mild effusion. No visualized acute fracture or dislocation. However, occult injury cannot be excluded . Recommend short interval imaging follow-up in 7-10 days as clinically indicated for additional eval uation. Reviewed by: Christel Calle MD on 03/25/2024 1:18 PM PDT Approved by: Christel Calle MD on 03/25/2024 1:18 PM PDT Station ID: [id number]
--- NOTE | 2024-03-25 13:24 | XRAY Report ---
PROCEDURE: Ankle 3+V LT INDICATIONS: LEFT ANKLE JOINT PAIN TECHNIQUE: 3 views of the ankle were acquired. COMPARISON: X-ray ankle 11/27/2023 FINDINGS: Bones: Perosteal reaction is present at the cortex of the distal fibula. There is a slightly irregul ar trabecular pattern of the distal fibula relatively unchanged. Ankle mortise is normally aligned. No suspicious bony lesions. Soft tissues: Prominent lateral malleolar edema. Achilles tendon appears normal. IMPRESSION: Distal fibular periosteal reaction with somewhat irregular trabecular pattern suspicious for underlyi ng fracture. CT or MRI is recommended for further evaluation. Reviewed by: Christel Calle MD on 03/25/2024 1:23 PM PDT Approved by: Christel Calle MD on 03/25/2024 1:23 PM PDT Station ID: [id number]
== END 2024-03-24 20:50 | disposition home or self-care (01) ==
LOC: DI 20:49
PROVIDERS: ATTEND Physician Assistant
DX: M25.461 Effusion, right knee (principal); M25.561 Pain in right knee; M25.572 Pain in left ankle and joints of left foot

== ENCOUNTER 2024-04-14 12:20 | Outpatient (CLI) | payer MEDICAID ==
--- NOTE | 2024-04-14 20:13 | XRAY Report ---
PROCEDURE: Knee 4+V RT INDICATIONS: R KNEE PAIN TECHNIQUE: 3 views of the knee was obtained. COMPARISON: None FINDINGS: Bones: No fractures or dislocations. No suspicious bony lesions. Medial and lateral compartmental j oint space narrowing without marginal osteophyte Soft tissues: Large knee joint effusion. No suspicious soft tissue calcifications or masses. IMPRESSION: Bicompartmental osteoarthritis and large joint effusion. No fracture Reviewed by: Kemar Julien MD on 04/14/2024 7:11 PM AKDT Approved by: Kemar Julien MD on 04/14/2024 7:11 PM AKDT Station ID: [id number]
--- NOTE | 2024-04-14 20:17 | XRAY Report ---
PROCEDURE: Ankle 3+V LT INDICATIONS: L ANKLE PAIN TECHNIQUE: 3 views of the ankle were acquired. COMPARISON: None FINDINGS: Bones: No fractures or dislocations. Ankle mortise is normally aligned. No suspicious bony lesions . Generalized decreased osseous mineralization present. Degenerative enthesophyte Soft tissues: Unremarkable without significant soft tissue swelling. No radiopaque foreign body. IMPRESSION: Degenerative changes without fracture Reviewed by: Kemar Julien MD on 04/14/2024 7:16 PM AKDT Approved by: Kemar Julien MD on 04/14/2024 7:16 PM AKDT Station ID: [id number]
== END 2024-04-14 12:21 | disposition home or self-care (01) ==
LOC: DI 12:20
PROVIDERS: ATTEND Orthopaedic Surgery
DX: M17.11 Unilateral primary osteoarthritis, right knee (principal); M25.461 Effusion, right knee; M19.072 Primary osteoarthritis, left ankle and foot